=== PATIENT | female | born 1960 | race Caucasian/White ===

== ENCOUNTER 2022-10-15 09:38 | Outpatient (CLI) | payer MEDICAID, SELFPAY | END 2022-10-15 09:39 | disposition home or self-care (01) | PROVIDERS: PCP Family Medicine; Visit Provider Family Medicine | DX: R53.83 Other fatigue (principal); E55.9 Vitamin D deficiency, unspecified; R07.9 Chest pain, unspecified; Z86.39 Personal history of other endocrine, nutritional and metabolic disease | CPT/HCPCS: 80048; 80061; 82306; 84443; 85025 ==

== ENCOUNTER 2024-01-19 10:00 | Outpatient (CLI) | payer OTHER, SELFPAY ==
--- NOTE | 2024-01-19 11:02 | W.ANESCHARGE ---
Anesthesia Charges Start Date/Time Anesthesia Start Date: 01/19/24 Anesthesia Start Time: 10:44 Stop Date/Time Anesthesia Stop Date: 01/19/24 Anesthesia Stop Time: 11:00
--- NOTE | 2024-01-19 11:03 | W.ANESCHARGE ---
Anesthesia Charges Start Date/Time Anesthesia Start Date: 01/19/24 Anesthesia Start Time: 10:44 Stop Date/Time Anesthesia Stop Date: 01/19/24 Anesthesia Stop Time: 11:00
== END 2024-01-19 10:01 | disposition home or self-care (01) ==
LOC: OP CLINIC 10:03
PROVIDERS: PCP Family Medicine; Visit Provider Surgery
DX: R19.8 Other specified symptoms and signs involving the digestive system and abdomen; K44.9 Diaphragmatic hernia without obstruction or gangrene
CPT/HCPCS: 00731; 43239; 88305; J2704

== ENCOUNTER 2024-07-02 12:43 | Inpatient (IN) | payer MEDICAID, SELFPAY ==
[2024-07-02] VITALS (36 sets, daily range): BP systolic 109–149; BP diastolic 83–111; PULSE 80–111; RESP 16–24; TEMP 36–36.6; O2SAT 92–96; BMI 30.8; BMI 31.3
--- OUTSIDE RECORDS SUMMARY | 2024-07-02 12:45 | XMS_ITS | Clinical Summary ---
Author Organization [facility] Address [place], [place] [address] Care Team Providers Care Education Professional Name Role Phone Srinivasan Kern MD Primary Care Provider + Allergies Active Allergy Reactions Criticality Noted Date Comments Venlafaxine Analogues Other - Describe In Comment Field 02/15/2011 Vision disturbances Gabapentin 04/03/2010 memory Fluoxetine Mental Status Change Medium 02/15/2011 Tricyclic Antidepressants And Tricyclic Compounds 04/03/2010 Per patient: memory loss Medications albuterol HFA 90 mcg/actuation inhalerIndicati ons:Wheezing Inhale 1-2 Puffs by mouth every 4 hours if needed. 1 Inhaler 1 03/27/2018 Active nicotine 7 mg/24 hr (NICODERM; HABITROL) 7 mg/24 hr patchIndication s:Tobacco abuse Apply 1 Patch on dry, clean, hairless skin once daily. 30 Patch 2 03/27/2018 Active traMADol (ULTRAM) 50 mg tabletIndicatio ns:Acute bilateral low back pain without sciatica Take 1 tablet by mouth every 6 hours if needed. 60 tablet 2 05/12/2018 Active clonazePAM (KLONOPIN) 1 mg tabletIndicatio ns:Anxiety Take 1 tablet by mouth 2 times daily. 60 tablet 2 05/12/2018 Active cyclobenzaprine (FLEXERIL) 10 mg tabletIndicatio ns:Acute bilateral low back pain without sciatica Take 1 tablet by mouth 3 times daily if needed for Muscle Spasm. 90 tablet 5 05/12/2018 Active nicotine (NICORETTE) 2 mg lozengeIndicati ons:Tobacco abuse Place 1 Lozenge in mouth, between cheek & gum every hour while awake as needed for Nicotine Craving. 40 Lozenge 2 05/28/2018 Active DICLOFENAC SODIUM ORAL Take by mouth 2 times daily. Active BUPROPION HCL ORAL Take by mouth once daily. Active sertraline HCl (ZOLOFT ORAL) Take by mouth once daily. Active Active Problems Problem Noted Date Diagnosed Date Tobacco abuse 03/27/2018 Moderate episode of recurrent major depressive d isorder 03/20/2017 Lumbago 11/28/2007 Hypopyon 07/31/2003 Overview (10/10/2006): sergio/Dr. Chiang Migraine, unspecified, witho ut mention of intractable migraine without mention of status migrainosus Alcohol abuse, unspecified Overview (10/10/2006): sober since Allergic rhinitis, cause unspecified Resolved Problems Problem Noted Date Diagnosed Date Resolved Date Bronchitis, not specified as acute or chronic 11/28/19 08 01/26/2015 Obesity, unspecified 11/28/2007 015 Depressive disorder, not elsewhere classified 03/11/2017 Myalgia and myositis, unspecified 03/11/2017 Unspecified asthma(493.90) 0 01/26/2015 Immunizations Name Administration Dates Next Due Hepatitis B (Peds) 06/12/1992,12/14/1991, 992 Influenza, IIV4 03/27/2018,03/07/2017,03/15/2016 MMR 01/11/1992 Td (Age >=7 Years) 04/23/2002 Tdap 01/19/2021,12/21/2013 Family History Medical History Relation Name Comments Allergies Father Arthritis Father Asthma Father Stroke Father Alcohol/Drug Maternal Grandfather Heart Disease Maternal Grandfather Cancer Maternal Grandmother lung Hyperlipidemia Mother Hypertension Mother Other Mother suicide/depress ion/grave's disease Diabetes Paternal Grandfather Cancer-breast Paternal Grandmother Relation Name Status Comments Father Maternal Grandfather Maternal Grandmother Mother Paternal Grandfather Paternal Grandmother Social History Tobacco Use Types Packs/Day Years Used Date Smoking Tobacco: Former Cigarettes Smokeless Tobacco: Never Tobacco Cessation:Ready to Q uit: No; Counseling Given: Yes Comments:fall Alcohol Use Standard Drinks/Week Comments No 0 (1 standard drink = 0.6 oz pur e alcohol) last use Nov 20 2007 PHQ-2 Answer Date Recorded PHQ-2 Score 1 08/29/2018 Social Connections Answer Date Recorded Frequency of Communication with Friends and Fami ly Not on file 06/30/2021 Financial Resource Strain Answer Date R ecorded Difficulty of Paying Living Expenses Not on file 06/30/2021 Difficulty of Paying Living Expenses Not on file 06/30/2021 Comments No Sex and Gender Information Value Date Recorded Sex Assigned at Not on file Legal Sex Female 5:25 AM [employer]HANG[employer] P[employer] Gender Identity Not on file Sexual Orientation Not on file Obstetrics History Last Filed Vital Signs Vital Sign Reading Time Taken Comments Blood Pressure 125/87 01/19/2021 7:29 AM CDT Pulse 75 01/19/2021 7:29 AM CDT Temperature 36.8 C (98.2 F) 01/19/2021 7:29 AM CDT Respiratory Rate 16 01/19/2021 7:29 AM CDT Oxygen Saturation 98% 01/19/2021 7:29 AM CDT Inhaled Oxygen Concentration - - Weight 83.5 kg (184 lb) 01/19/2021 7:29 AM CDT Height 165.1 cm (5' 5) 01/19/2021 7:29 AM CDT Body Mass Index 30.62 01/19/2021 7:29 AM CDT Plan of Treatment Health Maintenance Due Date Last Done Comments HIV for age 15-65 1977 Colonoscopy through age 75 2007 Zoster (shingles) series for age 50+ (1 of 2) 2012 Mammogram for age 45-75 02/02/2016 02/01/2015, 04/03 BMI (ht and wt on same day) for age 18+ 05/12/2019 05/12/2018, 03/11/2017, 05/31/2016 Depression screening for age 12+ 05/12/2019 05/12/2018, 05/31/2016 Pap test for age 21-65 03/12/2020 7, 01/26/2015, 04/03/2010, Additional history exists Lipids for age 45-75 05/12/2023 05/12/2018, 03/07/2017, 01/26/2015, Additional history exists COVID-19 vaccine series (2023- season) 2024 Influenza for age 50-64 02/29/2024 03/27/20 18, 03/07/2017, 03/15/2016 Tetanus booster 01/19/2031 01/19/2021, 11/29, 04/23/2002 RSV vaccine for adults or (1 - 1-dose 75+ series) 2037 Hepatitis C screening for age 18-79 Completed 01/26/2015 Tdap Completed 01/19/2021, 12/21/2013 Pneumococcal series for age 6-49 Aged Out No longer eligible based on patient's age to complete this topic Procedures Procedure Name Priority Date/Time Associated Diagnosis Comments LIPID PANEL W REFLEX MEASURED LDL Routine 05/12/2018 9:18 AM PAPERHANGER PIPE Routine general medical examination at a health care facility [employer] THIN PREP PAP SCREEN IMAGED Routine 03/12/2017 10:33 AM CDT Screening for malignant neoplasm of cervix XR MAMMO BILAT SCREEN FFDM (IA) Routine 02/01/2015 9:37 AM CDT Other screening mammogram ANTI HCV Routine 01/26/2015 8:38 AM CDT Need for hepatitis C screening test from Last 3 Months or Most Recently Relevant to Health Maintenance Results * (ABNORMAL) LIPID PANEL W REFLEX MEASURED LDL (05/12/2018 9:18 AM PAPERHANGER PIPE) CHOLESTEROL,TOTAL 213(H) 100 - 199 mg/dL 05/12/2018 9:55 AM PAPERHANGER PIPE [facility] TRIGLYCERIDES 106 <150 mg/dL 05/12/2018 9:55 AM PAPERHANGER PIPE [facility] HDL CHOLESTEROL 64 >40 mg/dL 8 9:55 AM PAPERHANGER PIPE [facility] NON-HDL CHOLESTEROL 149(H) <145 mg/dl 05/12/2018 9:55 AM PAPERHANGER PIPE [facility] CHOL/HDL RATIO 3.33 <4.50 05/12/2018 9:55 AM PAP[employer]HANGER PIPE [facility] LDL CHOLESTEROL 128 <=130 mg/dL 05/12/2018 9:55 AM PAPERHANGER PIPE [facility] PROVIDER ORDERED STATUS RANDOM 05/12/2018 9:55 AM PAPERHANGER PIPE [facility] Blood BLOOD SPECIMEN / Unknown Venipuncture / Unknown 05/12/2018 9:18 AM PAPERHANGER PIPE 05/12/2018 9:18 AM PAPERHANGER PIPE us Srinivasan Kern MD CHEMISTRY Final Re sult [facility] [address] [place] [address] * [employer] THIN PREP PAP SCREEN IMAGED (03/12/2017 10:33 AM CDT) Case Report Gynecologic Cytology Report Case: [id number] Authorizing Provider: Srinivasan Kern MD Collected: 03/12/2017 1033 Ordering Location: [facility] Received: 03/12/2017 1034 Clinic First Screen: Marcie Tan Specimen: [employer] ThinPrep Vial Screening, Cervical 03/18/2017 12:06 PM CDT [facility] INTERPRETATION/ RESULT NEGATIVE FOR INTRAEPITHELIAL LESION OR MALIGNANCY (NIL) (none) 03/18/2017 12:06 PM CDT [email or web address] IMEN ADEQUACY Satisfactory for evaluation Endocervical component present 03/18/2017 12:06 PM CDT [facility] HPV REQUEST HPV if ASCUS 03/18/2017 12:06 PM CDT [facility] Date of LMP Postmenopausal 7 12:06 PM CDT [facility] Last Pap Date 01/26/15 03/18/2017 12:06 PM CDT [facility] Last Pap Result NIL 7 12:06 PM CDT [facility] Abnormal Pap or [place] Bx in last 5 years No 03/18/2017 12:06 PM CDT [facility] Menstrual Status Postmenopausal 03/18/2017 12:06 PM CDT [facility] [place] Bx Done Today No 03/18/2017 12:06 PM CDT [facility] Additional Information None given 03/18/2017 12:06 PM CDT [facility] Automated Review Successful 03/18/2017 12:06 PM CDT [facility] Comment:Specimen processed s uccessfully by automated slip cover operator device, QR [employer] Imaging System, [employer] Note The pap test is a screening technique, not a diagnostic procedure. It is used primarily to screen for squamous cancers and precursor lesions. Published studies have shown that it is subject to both false negative and false positive results. The pap test should not be used as the sole means to diagnose or exclude pre-malignant and malignant lesions. Interpreted at [facility] ([facility], [facility], [facility], [facility], [facility], [facility], [facility]) 03/18/2017 12:06 PM CDT [facility] Other (Cervical) 03/12/2017 10:33 AM CDT 03/12/2017 10:34 AM CDT us Srinivasan Kern MD PATHOLOGY/CYTOLOGY Final Result [facility] [address] [place] [address], [place] * XR MAMMO BILAT SCREEN FFDM (02/01/2015 9:37 AM CDT) Anatomical Region Laterality Modality BREASTS, Breast Left, Breast Right Bilateral Mammography Impressions 02/01/2015 9:55 AM CDT There is no radiographic evidence for malignancy. Recommend annual mammograms. A lay language report of this examination will be provided to the patient. MAMMOGRAM ASSESSMENT: ACR 2 Benign Narrative 02/01/2015 9:55 AM CDT XR MAMMO BILAT SCREEN FFDM [G0202.0] CLINICAL HISTORY: This is an asymptomatic 54 y.o. patient. INDICATION FOR EXAM: Mammogram Screening. TECHNIQUE: CC & MLO views were obtained. This digital study was evaluated with the assistance of Computer-Aided Detection. COMPARISON FILMS: Yes 04/03/10 [facility] DIAGNOSTIC IMAGING FINDINGS: Mammographically, the breast tissue has scattered fibroglandular densities. No suspicious masses or microcalcifications. Benign appearing calcifications within both breasts. Srinivasan Kern MD MAMMO Final Re sult * ANTI HCV [[id number]] (01/26/2015 8:38 AM CDT) HEPATITIS C ANTIBODY Non-Reacti ve Non-Reacti ve 01/26/2015 4:42 PM CDT [facility] Blood specimen (specimen) BLOOD SPECIMEN / Unknown Non-Blood / Unknown 01/26/2015 8:38 AM CDT 01/26/2015 9:46 AM CDT Narrative [facility] - 01/26/2015 4:42 PM CDT Antibodies to HCV not detected; does not exclude the possibility of exposure to HCV. Srinivasan Kern MD SEND OUTS Final Re sult [facility] [address] [place] [address], [place] from Last 3 Months or Most Recently Relevant to Health Maintenance Insurance [employer] * Guarantor: [employer] Account Type Relation to Patient Date of Phone Billing Address Occ Health/Charm[employer] Employer [phone] (Work) ATTN [employer] [address] [address] [place] [employer] [phone] [facility] [place] [id number] Advance Directives * Full Code (Latest Code Status on File) Date Activated Date Inactivated Comments 11/28/2007 3:02 AM 11/29/2007 5:28 PM Care Teams Education Professional Relationship Specialty Start Date End Date Srinivasan Kern MD [address] [place] [address] PCP - General Family Practice 01/15/19
--- NOTE | 2024-07-02 13:01 | ED.SOB ---
HPI - SOB/Dyspnea General Time Seen by Provider: 13:01 Date Seen: 07/02/24 Chief Complaint: Shortness of Breath/Dyspnea Stated Complaint: Short of breath Time Seen by Provider: 07/02/24 13:01 Source: patient and RN notes reviewed Mode of arrival: ambulatory Limitations: no limitations History of Present Illness HPI Narrative: Christel is a very pleasant 63-year-old female with a history of tobacco use, COPD, GERD and hiatal hernia who comes to the emergency room with complaints of shortness of breath worsening. Patient notes the onset of shortness of breath approximately 3 weeks ago and has had worsening symptoms. She describes being barely able to walk 10 ft without significant shortness of breath where as she usually walks to work. She states a week ago she could walk about 100 yd. She does get discomfort in the right upper chest when this occurs. She has not had a fever unusual cough or lower extremity edema. She does note that this past fall she was dealing with some significant GERD from her hiatal hernia that felt like chest pain. She was put on pantoprazole and has been somewhat improved since that time but notes that on May 16 she was sitting on the edge of her bed had the onset of chest pain associated with diaphoresis shortness of breath and shaking and is fairly certain that it was likely a heart attack because things have never been the same since that time. Patient is been caring for her . She reports no fever or other respiratory symptoms. She has greatly decreased tobacco use and only had a few puffs a cigarette today. Related Data Home Medications ?Medication ?Instructions ?Recorded ?Confirmed fluticasone 250 mcg-salmeterol 50 1 inh inhalation BID 06/07/24 07/02/24 mcg/dose blistr powdr for inhalation (Advair Diskus) citalopram 40 mg tablet 40 mg PO DAILY 07/02/24 07/02/24 diphenhydramine HCl 25 mg capsule 25 - 50 mg PO BID 07/02/24 07/02/24 (Allergy Relief (diphenhydramine)) pantoprazole 40 mg tablet,delayed 40 mg PO DAILY 07/02/24 07/02/24 release (Protonix) Previous Rx's ?Medication ?Instructions ?Recorded cholecalciferol (vitamin D3) 1,250 1,250 mcg PO QWEEK #12 caps 02/03/24 mcg (50,000 unit) capsule hydroxyzine HCl 25 mg tablet 25 - 50 mg (1 - 2 x 25 mg) PO TID 03/03/24 PRN anxiety #60 tabs buspirone 30 mg tablet 30 mg PO BID PRN anxiety #60 tabs 03/29/24 tramadol 50 mg tablet 50 mg PO Q6H PRN pain #90 tabs 04/11/24 albuterol sulfate 90 mcg/actuation 2 puff inhalation Q4-6H PRN 06/07/24 aerosol inhaler shortness of breath or wheezing #8.5 grams Allergies Allergy/AdvReac Type Severity Reaction Status Date / Time fluoxetine Allergy Severe altered Verified 07/02/24 14:28 mental status gabapentin Allergy Severe Hallucinati Verified 07/02/24 14:28 ng Tricyclic Antidepressants Allergy Severe memory loss Verified 07/02/24 14:28 and Tricy Venlafaxine Analogues Allergy Intermediate Unknown Verified 07/02/24 14:28 Pollen Allergy Mild Congested Uncoded 07/02/24 14:28 Review of Systems Status of ROS: Reports: 10 or more systems reviewed and unremarkable except as noted in History and below [facility] Medical History Generalized anxiety disorder ?F41.1 - Generalized anxiety disorder (ICD-10) COPD (chronic obstructive pulmonary disease) ?J44.9 - Chronic obstructive pulmonary disease, unspecified (ICD-10) Vitamin D deficiency ?E55.9 - Vitamin D deficiency, unspecified (ICD-10) GERD (gastroesophageal reflux disease) ?K21.9 - Gastro-esophageal reflux disease without esophagitis (ICD-10) Tobacco abuse (03/27/18) ?Z72.0 - Tobacco use (ICD-10) Moderate episode of recurrent major depressive disorder (03/20/17) ?F33.1 - Major depressive disorder, recurrent, moderate (ICD-10) Hypopyon of right eye ?H20.051 - Hypopyon, right eye (ICD-10) History of migraine ?Z86.69 - Personal history of other diseases of the nervous system and sense organs (ICD-10) History of alcohol abuse ?F10.11 - Alcohol abuse, in remission (ICD-10) Chronic low back pain ?M54.50 - Low back pain, unspecified (ICD-10) ?G89.29 - Other chronic pain (ICD-10) Allergic rhinitis ?J30.9 - Allergic rhinitis, unspecified (ICD-10) Surgical History History of removal of cyst ?Z98.890 - Other specified postprocedural states (ICD-10) History of arthroscopy of right knee (~1997) ?Z98.890 - Other specified postprocedural states (ICD-10) 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) ?Z96.651 - Presence of right artificial knee joint (ICD-10) History of tubal ligation (08/29/95) ?Z98.51 - Tubal ligation status (ICD-10) History of third molar tooth extraction ?K08.409 - Partial loss of teeth, unspecified cause, unspecified class (ICD-10) History of lumbar laminectomy (10/28/04) ?Z98.890 - Other specified postprocedural states (ICD-10) Family History Paternal Grandmother Breast cancer Mother Depression Heart disease CHF (congestive heart failure) COPD (chronic obstructive pulmonary disease) Father Heart disease High blood pressure Brother Prostate cancer Social History Narrative: -[place], 3 kids, [place], smoker, no EtOH Smoking Status: Current every day smoker What tobacco products do you use: cigarettes Do you use any of these nicotine containing products: None Second hand tobacco smoke exposure: No Exam Narrative: Exam Narrative: Alert and oriented. Mildly breathless when talking. O2 sats 92-95%. External ears eyes nose clear. We will GCS of 15 with normal mentation. Neck is supple. Heart with a tachycardic rate with normal rhythm. Lungs show decreased breath sounds bilaterally. Abdomen soft would rather a diffuse discomfort. Lower extremities with no evidence of edema. Calves are without any discomfort and Homans sign is negative. Const: Vital Signs, click to edit/add: Vital Signs - 24 hr 07/02/24 12:54 07/02/24 13:04 07/02/24 13:05 Temperature 96.8 F L Pulse Rate 97 96 Pulse Rate [Right Pulse Oximeter] 110 H Respiratory Rate 24 Blood Pressure 134/97 H Blood Pressure [Ri ght Upper Arm] 149/91 H Pulse Oximetry 95 92 94 Oxygen Delivery Me thod Room Air 07/02/24 13:15 07/02/24 13:33 07/02/24 13:34 Temperature Pulse Rate 94 107 H 103 H Pulse Rate [Right Pulse Oximeter] Respiratory Rate Blood Pressure 132/89 Blood Pressure [Ri ght Upper Arm] Pulse Oximetry 93 94 95 Oxygen Delivery Me thod 07/02/24 13:45 07/02/24 14:00 07/02/24 14:01 Temperature Pulse Rate 100 91 101 H Pulse Rate [Right Pulse Oximeter] Respiratory Rate Blood Pressure 124/83 Blood Pressure [Ri ght Upper Arm] Pulse Oximetry 94 93 92 Oxygen Delivery Me thod 07/02/24 14:15 07/02/24 14:34 07/02/24 14:35 Temperature Pulse Rate 100 106 H 102 H Pulse Rate [Right Pulse Oximeter] Respiratory Rate 16 Blood Pressure Blood Pressure [Ri ght Upper Arm] Pulse Oximetry 93 95 93 Oxygen Delivery Me thod 07/02/24 14:45 07/02/24 15:01 07/02/24 15:02 Temperature Pulse Rate 97 100 Pulse Rate [Right Pulse Oximeter] Respiratory Rate Blood Pressure 128/95 H Blood Pressure [Ri ght Upper Arm] Pulse Oximetry 94 94 Oxygen Delivery Me thod 07/02/24 15:15 07/02/24 15:30 07/02/24 15:31 Temperature Pulse Rate 105 H 96 98 Pulse Rate [Right Pulse Oximeter] Respiratory Rate Blood Pressure 138/95 H Blood Pressure [Ri ght Upper Arm] Pulse Oximetry 93 94 94 Oxygen Delivery Me thod 07/02/24 15:32 07/02/24 15:45 07/02/24 16:00 Temperature Pulse Rate 96 100 98 Pulse Rate [Right Pulse Oximeter] Respiratory Rate Blood Pressure Blood Pressure [Ri ght Upper Arm] Pulse Oximetry 94 96 96 Oxygen Delivery Me thod 07/02/24 16:01 07/02/24 16:15 07/02/24 16:30 Temperature Pulse Rate 98 100 107 H Pulse Rate [Right Pulse Oximeter] Respiratory Rate Blood Pressure 126/101 H Blood Pressure [Ri ght Upper Arm] Pulse Oximetry 96 93 96 Oxygen Delivery Me thod 07/02/24 16:31 07/02/24 16:32 07/02/24 16:45 Temperature Pulse Rate 100 102 H 94 Pulse Rate [Right Pulse Oximeter] Respiratory Rate Blood Pressure 131/91 H Blood Pressure [Ri ght Upper Arm] Pulse Oximetry 94 96 95 Oxygen Delivery Me thod 07/02/24 17:01 07/02/24 17:20 07/02/24 17:30 Temperature Pulse Rate 101 H 95 Pulse Rate [Right Pulse Oximeter] Respiratory Rate Blood Pressure 122/104 H Blood Pressure [Ri ght Upper Arm] Pulse Oximetry 96 94 Oxygen Delivery Me thod 07/02/24 17:31 Temperature Pulse Rate 92 Pulse Rate [Right Pulse Oximeter] Respiratory Rate Blood Pressure 132/84 Blood Pressure [Ri ght Upper Arm] Pulse Oximetry 95 Oxygen Delivery Me thod Documenting provider has reviewed patient's vital signs: yes Course Course ED Course: Differential diagnosis at this time is broad and includes COPD exacerbation, COVID, influenza, RSV, W[place], congestive heart failure, pneumonia. Will place IV and draw labs to include CBC, comprehensive panel, troponin, D-dimer, proBNP. Will also get chest x-ray EKG and place patient on cinnamon grinder. Reevaluation(s) Reevaluation #1: The patient noted to have elevated D-dimer and thus will order CT chest PE rule out. Reevaluation #2: CT does show bilateral pleural effusion, dilated left ventricle and concerns for pulmonary edema. I did talk to patient about her need for hospitalization and that we do not have Cardiology here. I do talk about [facility] as a possibility but she states that she really wants to stay in [place] as she is helping to care for family members. I will speak to hospitalist here at [place]. Vital Signs Vital signs: Initial Vital Signs Temperature 96.8 F L 07/02/24 12:54 Temperature Source Temporal Artery Scan 07/02/24 12:54 Pulse Rate 110 H 07/02/24 12:54 Pulse Rhythm Regular 07/02/24 12:54 Respiratory Rate 24 07/02/24 12:54 Blood Pressure 149/91 H 07/02/24 12:54 Blood Pressure Mean 110 H 07/02/24 12:54 Blood Pressure Position Sitting 07/02/24 12:54 Pulse Oximetry 95 07/02/24 12:54 Oxygen Delivery Method Room Air 07/02/24 12:54 Vital Signs Temperature 96.8 F L 07/02/24 12:54 Pulse Rate 110 H 07/02/24 12:54 Respiratory Rate 24 07/02/24 12:54 Blood Pressure 149/91 H 07/02/24 12:54 Pulse Oximetry 95 07/02/24 12:54 Oxygen Delivery Method Room Air 07/02/24 12:54 Temperature 96.8 F L 07/02/24 12:54 Pulse Rate 92 07/02/24 17:31 Respiratory Rate 16 07/02/24 14:35 Blood Pressure 132/84 07/02/24 17:31 Pulse Oximetry 95 07/02/24 17:31 Oxygen Delivery Method Room Air 07/02/24 12:54 Medications Administered Medications: Discontinued Medications Generic Name Dose Route Start Last Admin Trade Name Maliha PRN Reason Stop Dose Admin Aspirin 324 mg 07/02/24 14:37 07/02/24 14:52 Aspirin 81 Mg Tab.Chew PO 07/02/24 14:38 324 mg ONCE ONE Administration Furosemide 40 mg 07/02/24 16:46 07/02/24 17:41 Furosemide 10 Mg/Ml Inj IVP 07/02/24 16:47 40 mg ONCE ONE Administration MDM - SOB/Dyspnea MDM Narrative Medical decision making narrative: 1. New onset congestive heart failure-noted on CT is bilateral pleural effusion, proBNP elevated over 11,000, dilated left ventricle. Patient describes episode of intense chest pain with shortness of breath diaphoresis in mid April and notes that her breathing has gradually become more challenging since that time. Questionable WV at that time. Patient received 40 mg of IV Lasix in the ED. her troponin was in the indeterminate range at 0.05 with subsequent follow-up 0.07 which remains in the indeterminate range and likely stems from pulmonary edema. I spoke with our hospitalist who agrees to have this patient's stay here for diuresis, echocardiogram and continued observation. Patient will ultimately need to see Cardiology for likely further radiological studies such as a catheterization or MRI. At this time will continue to monitor troponin and hopefully she will have improvement of her symptoms after Lasix. Patient was also given aspirin 324 mg p.o. after initial troponin. 2. History of COPD-patient has not had significant coughing, fever, has tested negative for COVID influenza and RSV. 3. Disposition- admission to [facility] under the care of hospitalist Dr. Pete Cantu. Medical Records Attestation: I reviewed the patient's medical records. Lab Data Attestation: I reviewed the patient's lab results. Labs: Lab Results 07/02/24 07/02/24 07/02/24 Range/Units 12:10 13:12 13:20 WBC 7.20 (4.50-11.00) K/uL RBC 5.30 H (4.00-5.20) m/uL Hgb 14.3 (12.0-16.0) gm/dL Hct 45.1 (33.0-51.0) % MCV 85 (80-100) fL MCH 27 (26-34) pg MCHC 32 (32-36) gm/dL RDW Coeff of [place] 14.6 (11.5-15.5) % Plt Count 259 (140-440) K/uL Neut % (Auto) 69.6 (42.0-72.0) % Lymph % (Auto) 19.7 L (20-44) % [place] % (Auto) 7.8 (0.0-11.0) % Eos % (Auto) 2.1 (0.0-7.0) % Baso % (Auto) 0.7 (0.0-3.0) % Neut # (Auto) 5.01 (1.7-7.0) K/uL Lymph # (Auto) 1.40 (0.90-2.90) K/uL [place] # (Auto) 0.60 (0.00-0.90) K/UL Eos # (Auto) 0.15 (0.00-0.50) K/uL Baso # (Auto) 0.05 (0.00-0.30) K/uL Abs Immat Gran (auto) 0.01 (0.00-0.30) K/uL Imm/Tot Granulo (auto) 0.1 % D-Dimer Quant (PE/DVT) 1.85 H (0.00-0.50) ug/ml Sodium 140 (135-149) mmol/L Potassium 3.4 L (3.6-5.1) mmol/L Chloride 109 (96-114) mmol/L Carbon Dioxide 24 (20-32) mmol/L Anion Gap 7 (7-15) mEq/L BUN 15 (7-30) mg/dL Creatinine 0.8 (0.5-1.5) mg/dL Estimated Creat Clear 53.16 Estimated GFR 84 ml/min Glucose 99 (60-115) mg/dL Calcium 9.0 (8.4-10.6) mg/dL Total Bilirubin 0.9 (0.1-1.5) mg/dL AST 24 (12-35) U/L ALT 16 (4-35) U/L Alkaline Phosphatase 78 (40-150) U/L NT-Pro-B Natriuret Pep 82583 pg/mL Total Protein 6.2 (6.0-8.3) g/dL Albumin 3.9 (3.3-5.0) g/dL SARS-CoV-2 (PCR) Negative SARS-CoV-2 (Negative) Influenza Type A (PCR) Negative PCR FLU A (Negative) Influenza Type B (PCR) Negative PCR FLU B (Negative) RSV (PCR) Negative PCR RSV (Negative) POC Troponin I 0.05 H (0.01-0.04) ng/ml 07/02/24 Range/Units 16:37 WBC (4.50-11.00) K/uL RBC (4.00-5.20) m/uL Hgb (12.0-16.0) gm/dL Hct (33.0-51.0) % MCV (80-100) fL MCH (26-34) pg MCHC (32-36) gm/dL RDW Coeff of [place] (11.5-15.5) % Plt Count (140-440) K/uL Neut % (Auto) (42.0-72.0) % Lymph % (Auto) (20-44) % [place] % (Auto) (0.0-11.0) % Eos % (Auto) (0.0-7.0) % Baso % (Auto) (0.0-3.0) % Neut # (Auto) (1.7-7.0) K/uL Lymph # (Auto) (0.90-2.90) K/uL [place] # (Auto) (0.00-0.90) K/UL Eos # (Auto) (0.00-0.50) K/uL Baso # (Auto) (0.00-0.30) K/uL Abs Immat Gran (auto) (0.00-0.30) K/uL Imm/Tot Granulo (auto) % D-Dimer Quant (PE/DVT) (0.00-0.50) ug/ml Sodium (135-149) mmol/L Potassium (3.6-5.1) mmol/L Chloride (96-114) mmol/L Carbon Dioxide (20-32) mmol/L Anion Gap (7-15) mEq/L BUN (7-30) mg/dL Creatinine (0.5-1.5) mg/dL Estimated Creat Clear Estimated GFR ml/min Glucose (60-115) mg/dL Calcium (8.4-10.6) mg/dL Total Bilirubin (0.1-1.5) mg/dL AST (12-35) U/L ALT (4-35) U/L Alkaline Phosphatase (40-150) U/L NT-Pro-B Natriuret Pep pg/mL Total Protein (6.0-8.3) g/dL Albumin (3.3-5.0) g/dL SARS-CoV-2 (PCR) (Negative) Influenza Type A (PCR) (Negative) Influenza Type B (PCR) (Negative) RSV (PCR) (Negative) POC Troponin I 0.07 H (0.01-0.04) ng/ml Imaging Data Chest x-ray: Attestation: I have reviewed the pertinent imaging results. My impression: Pleural effusions Radiologist's impression: Cardiovasculature and mediastinum: The cardiomediastinal contours are partially obscured, limiting evaluation. Lungs and pleural spaces: Small to moderate bilateral pleural effusions with basilar atelectasis. There is also mild diffuse interstitial prominence. No pneumothorax. Bones and soft tissues: No significant findings. IMPRESSION: Small to moderate bilateral pleural effusions with basilar atelectasis and mild diffuse interstitial prominence. While nonspecific, this combination may reflect suggestive wwes-et-lzxpiszf pulmonary edema. CT scan - chest: Attestation: I have reviewed the pertinent imaging results. Radiologist's impression: Heart and vasculature: Contrast opacification of the pulmonary arterial tree is adequate. No sign of pulmonary embolism. Mild pulmonary artery enlargement. Left ventricular dilatation. Severe coronary atherosclerosis. Lungs and pleural: Dpjmp-wa-mteasobb right and small left pleural effusions. Bilateral interlobular septal thickening and mild geographic ground-glass opacities within both lungs, greater in the lung bases. Lymph nodes/mediastinum: Subcentimeter mediastinal lymph nodes. Chest wall: No masses. Upper abdomen: Gallbladder contracted. Bones: Unremarkable for age. IMPRESSION: 1. No evidence of pulmonary embolus. 2. Small to moderate right and small left pleural effusions. Bilateral interlobular septal thickening and geographic ground-glass opacities. Left ventricular dilatation. Appearance is consistent with left ventricular failure, pulmonary edema and subsequent bilateral pleural effusions. 3. Severe coronary atherosclerosis. ECG Data Attestation: I personally reviewed and interpreted this ECG as follows: ECG interpretation date: 07/02/24 Interpretation: By my read patient has sinus rhythm at a rate of 99. Occasional PVC. Nonspecific T-wave abnormality. Discharge Plan Discharge Clinical Impression: New onset of congestive heart failure Patient Disposition: Admitted As Observation Condition: Improved
--- NOTE | 2024-07-02 13:12 | CRLHL7_ITS ---
For Patients: As a result of the Century Cures Act, medical imaging exams and procedure reports are released immediately into your electronic medical record. You may view this report before your referring provider. If you have questions, please contact your health care provider. INDICATION: Shortness of breath. TECHNIQUE: Chest 1 views. COMPARISON: None. FINDINGS: Cardiovasculature and mediastinum: The cardiomediastinal contours are partially obscured, limiting evaluation. Lungs and pleural spaces: Small to moderate bilateral pleural effusions with basilar atelectasis. There is also mild diffuse interstitial prominence. No pneumothorax. Bones and soft tissues: No significant findings. IMPRESSION: Small to moderate bilateral pleural effusions with basilar atelectasis and mild diffuse interstitial prominence. While nonspecific, this combination may reflect suggestive mngh-zs-hjnruqmo pulmonary edema. Dictated by Tres Jarvis MD @ 07/02/2024 2:19:03 PM (Electronically Signed)
--- OUTSIDE RECORDS SUMMARY | 2024-07-02 13:23 | XMS_ITS | Clinical Summary ---
Author Organization [facility] Address [place], [place] [address] Care Team Providers Care Hoisting Pile Driving Engineer Name Role Phone Srinivasan Kern MD Primary [...] on file Legal Sex Female 5:25 AM RIFFLER TENDER Gender Identity Not on file Sexual Orientation [...] REFLEX MEASURED LDL Routine 05/12/2018 9:18 AM RIFFLER TENDER Routine general medical examination at a health care facility APPLICATION SERVICES MANAGER THIN PREP PAP SCREEN IMAGED Routine 03/12/2017 [...] W REFLEX MEASURED LDL (05/12/2018 9:18 AM RIFFLER TENDER) CHOLESTEROL,TOTAL 213(H) 100 - 199 mg/dL 05/12/2018 9:55 AM RIFFLER TENDER [facility] TRIGLYCERIDES 106 <150 mg/dL 05/12/2018 9:55 AM RIFFLER TENDER [facility] HDL CHOLESTEROL 64 >40 mg/dL 8 9:55 AM RIFFLER TENDER [facility] NON-HDL CHOLESTEROL 149(H) <145 mg/dl 05/12/2018 9:55 AM RIFFLER TENDER [facility] CHOL/HDL RATIO 3.33 <4.50 05/12/2018 9:55 AM RIFFLER TENDER [facility] LDL CHOLESTEROL 128 <=130 mg/dL 05/12/2018 9:55 AM RIFFLER TENDER [facility] PROVIDER ORDERED STATUS RANDOM 05/12/2018 9:55 AM RIFFLER TENDER [facility] Blood BLOOD SPECIMEN / Unknown Venipuncture / Unknown 05/12/2018 9:18 AM RIFFLER TENDER 05/12/2018 9:18 AM RIFFLER TENDER us Srinivasan Kern MD CHEMISTRY Final Re sult [facility] [address] [place] [address] * APPLICATION SERVICES MANAGER THIN PREP PAP SCREEN IMAGED (03/12/2017 10:33 AM CDT) Case Report Gynecologic Cytology Report Case: [id number] Authorizing Provider: Srinivasan Kern MD Collected: 03/12/2017 1033 Ordering Location: [facility] Received: 03/12/2017 1034 Clinic First Screen: Marcie Tan Specimen: APPLICATION SERVICES MANAGER [employer] Vial Screening, Cervical 03/18/2017 12:06 PM CDT [facility] INTERPRETATION/ RESULT NEGATIVE FOR INTRAEPITHELIAL LESION OR MALIGNANCY (NIL) (none) 03/18/2017 12:06 PM [facility] IMEN ADEQUACY Satisfactory for evaluation Endocervical component present 03/18/2017 12:06 PM CDT [facility] HPV REQUEST HPV if ASCUS 03/18/2017 12:06 PM CDT [facility] Date of LMP Postmenopausal 7 12:06 PM CDT [facility] Last Pap Date 01/26/15 03/18/2017 12:06 PM CDT [facility] Last Pap Result NIL 7 12:06 PM CDT [facility] Abnormal Pap or [place] Bx in last 5 years No 03/18/2017 12:06 PM CDT [facility] Menstrual Status Postmenopausal 03/18/2017 12:06 PM CDT [facility] [place] Bx Done Today No 03/18/2017 12:06 PM CDT [facility] Additional Information None given 03/18/2017 12:06 PM CDT [facility] Automated Review Successful 03/18/2017 12:06 PM CDT [facility] Comment:Specimen processed s uccessfully by automated sheet metal duct installer device, [employer] Imaging System, [employer] Note The pap test is a screening technique, not a diagnostic procedure. It is used primarily to screen for squamous cancers and precursor lesions. Published studies have shown that it is subject to both false negative and false positive results. The pap test should not be used as the sole means to diagnose or exclude pre-malignant and malignant lesions. Interpreted at [facility] ([facility], [facility], [facility], [facility], [facility], [facility], [facility]) 03/18/2017 12:06 PM CDT [facility] Other (Cervical) 03/12/2017 10:33 AM CDT 03/12/2017 10:34 AM CDT us Srinivasan Kern MD PATHOLOGY/CYTOLOGY Final Result [facility] [address] [place] [address], [place] * XR MAMMO BILAT SCREEN FFDM [...] of Computer-Aided Detection. COMPARISON FILMS: Yes 04/03/10 [facility] DIAGNOSTIC IMAGING FINDINGS: Mammographically, the breast tissue has scattered fibroglandular densities. No suspicious masses or microcalcifications. Benign appearing calcifications within both breasts. Srinivasan Kern MD MAMMO Final Re sult * ANTI HCV [[id number]] (01/26/2015 8:38 AM CDT) HEPATITIS C ANTIBODY Non-Reacti ve Non-Reacti ve 01/26/2015 4:42 PM CDT [facility] [employer] [facility] TR[facility] Blood specimen (specimen) BLOOD SPECIMEN / Unknown Non-Blood / Unknown 01/26/2015 8:38 AM CDT 01/26/2015 9:46 AM CDT Narrative [facility] - 01/26/2015 4:42 PM CDT Antibodies to HCV not detected; does not exclude the possibility of exposure to HCV. Srinivasan Kern MD SEND OUTS Final Re sult [facility] [address] [place] [address], [place] from Last 3 Months or Most Recently Relevant to Health Maintenance Insurance [facility] [employer] * Guarantor: [employer] Account Type Relation to Patient Date of Phone Billing Address Occ Health/Charmaine Employer [phone] (Work) ATTN [employer] [address] [address] [employer] [id number] [facility] [place] [place] [id number] Advance Directives * Full Code (Latest Code Status on File) Date Activated Date Inactivated Comments 11/28/2007 3:02 AM 11/29/2007 5:28 PM Care Teams Hoisting Pile Driving Engineer Relationship Specialty Start Date End Date Srinivasan Kern MD [address] [place] [address] PCP - General Family Practice 01/15/19
[2024-07-02 13:30] LABS: Basophils Absolute Auto 0.05 K/uL (0.00-0.30); Basophils Percent Auto 0.7 % (0.0-3.0); Eosinophils Absolute Auto 0.15 K/uL (0.00-0.50); Eosinophils Percent Auto 2.1 % (0.0-7.0); Hematocrit 45.1 % (33.0-51.0); Hemoglobin* 14.3 gm/dL (12.0-16.0); Immature Granulocytes Abs Auto 0.01 K/uL (0.00-0.30); Immature Granulocytes Pct Auto 0.1 %; Lymphocytes Percent Auto 19.7 % (20-44); Mean Corpuscular HGB Conc 32 gm/dL (32-36); Mean Corpuscular Hemoglobin 27 pg (26-34); Mean Corpuscular Volume 85 fL (80-100); Monocytes Percent Auto 7.8 % (0.0-11.0); Neutrophils Absolute Auto 5.01 K/uL (1.7-7.0); Neutrophils Percent Auto 69.6 % (42.0-72.0); Platelet Count* 259 K/uL (140-440); RDW Coefficient of Variation % 14.6 % (11.5-15.5)
[2024-07-02 13:35] LABS: Appearance Urine Clear (Clear); Bilirubin Urine 1+ (Negative); Blood Urine 2+ (Negative); Color Urine Yellow (Yellow); Glucose Urine Negative (Negative); Ketones Urine Trace (Negative); Leukocyte Esterase Urine Negative (Negative); Nitrite Urine Negative (Negative); Protein Urine 2+ (Negative); Specific Gravity Urine >= 1.030 (1.000-1.030)
[2024-07-02 13:36] LABS: Slide Review Reflex No
[2024-07-02 13:38] LABS: Troponin, Point-of-Care* 0.05 ng/ml (0.01-0.04)
[2024-07-02 13:44] LABS: Bacteria Urine Few; Squamous Epithelial Cell Urine Moderate (None-Few)
[2024-07-02 13:56] LABS: D Dimer Quantitative* 1.85 ug/ml (0.00-0.50)
[2024-07-02 13:57] LABS: Chloride* 109 mmol/L (96-114)
[2024-07-02 13:58] LABS: Albumin* 3.9 g/dL (3.3-5.0); Potassium* 3.4 mmol/L (3.6-5.1); Sodium* 140 mmol/L (135-149)
[2024-07-02 14:01] LABS: Alanine Aminotransferase* 16 U/L (4-35); Alkaline Phosphatase* 78 U/L (40-150); Anion Gap 7 mEq/L (7-15); Aspartate Amino Transferase* 24 U/L (12-35); Bilirubin Total* 0.9 mg/dL (0.1-1.5); Blood Urea Nitrogen* 15 mg/dL (7-30); Carbon Dioxide* 24 mmol/L (20-32); Creatinine* 0.8 mg/dL (0.5-1.5); Est. Creatinine Clearance* 53.16; Estimated Glomerular Filt Rate 84 ml/min; Glucose* 99 mg/dL (60-115); Total Protein* 6.2 g/dL (6.0-8.3)
[2024-07-02 14:10] LABS: PCR FLU A Negative PCR FLU A (Negative); PCR FLU B Negative PCR FLU B (Negative); PCR RSV Negative PCR RSV (Negative); SARS PCR* Negative SARS-CoV-2 (Negative)
[2024-07-02 14:16] LABS: NT Pro B Type NatriureticPept* 11300 pg/mL
--- NOTE | 2024-07-02 14:17 | CRLHL7_ITS ---
For Patients: As a result of the Century Cures Act, medical imaging exams and procedure reports are released immediately into your electronic medical record. You may view this report before your referring provider. If you have questions, please contact your health care provider. INDICATION: Shortness of breath and elevated D-dimer. TECHNIQUE: CT chest PE was acquired with 95 cc Isovue 370 intravenous contrast. COMPARISON: None. FINDINGS: Heart and vasculature: Contrast opacification of the pulmonary arterial tree is adequate. No sign of pulmonary embolism. Mild pulmonary artery enlargement. Left ventricular dilatation. Severe coronary atherosclerosis. Lungs and pleural: [id number] right and small left pleural effusions. Bilateral interlobular septal thickening and mild geographic ground-glass opacities within both lungs, greater in the lung bases. Lymph nodes/mediastinum: Subcentimeter mediastinal lymph nodes. Chest wall: No masses. Upper abdomen: Gallbladder contracted. Bones: Unremarkable for age. IMPRESSION: 1. No evidence of pulmonary embolus. 2. Small to moderate right and small left pleural effusions. Bilateral interlobular septal thickening and geographic ground-glass opacities. Left ventricular dilatation. Appearance is consistent with left ventricular failure, pulmonary edema and subsequent bilateral pleural effusions. 3. Severe coronary atherosclerosis. Please note that all CT scans at this facility use dose modulation, iterative reconstruction, and/or weight-based dosing when appropriate to reduce radiation dose to as low as reasonably achievable. Dictated by Dandre Lopez MD @ 07/02/2024 2:54:52 PM (Electronically Signed)
[2024-07-02] MEDS: ASPIRIN 81 MG TAB.CHEW 324 MG PO (14:52)
[2024-07-02 17:06] LABS: Troponin, Point-of-Care* 0.07 ng/ml (0.01-0.04)
[2024-07-02] MEDS: FUROSEMIDE 10 MG/ML inj 40 MG IVP (17:41)
[2024-07-02] MEDS: METOPROLOL SUCCINATE (XL) 25 MG TAB PO (18:36)
--- NOTE | 2024-07-02 18:45 | P.IMHP_ITS ---
Hospitalist- H&P: HPI History of Present Illness Date Seen: 07/02/24 Chief complaint: Short of breath Narrative: Christel Vila is a 63 year old female with COPD, GERD who presents with worsening dyspnea. Patient reports 1st having onset of symptoms of illness about May 16. At that time she had an episode of fairly severe chest pain which she thought was GERD. She also noted that she was starting to feel short of breath with activity. In the 7 weeks since that time she has noted worsening dyspnea. She is having orthopnea and nocturnal dyspnea. Previously she could walk 100 yd and now she reports that she has to stop after 10 ft of walking to catch her breath she occasionally has a bit of chest pain with ambulation but it is primarily limited by dyspnea. She has no history of heart disease, coronary disease, dysrhythmia, valvular heart disease. She does smoke. Quit smoking 2 weeks ago. Her mother had heart failure and father also had heart disease. She has dyslipidemia with total cholesterol of 216, LDL 138, HDL 55, triglycerides 115. No hypertension or diabetes. She does not have significant lower extremity edema. Review of Systems Narrative: She reports ongoing symptoms of gastroesophageal reflux disease, some of those symptoms overlap with heart disease. She does feel worse if she does not take her Protonix. [facility] Medical History (Updated 07/02/24 @ 19:14 by Chadwick Cantu MD) Coronary artery disease ?I25.10 - Atherosclerotic heart disease of [place] coronary artery without angina pectoris (ICD-10) Dyslipidemia ?E78.5 - Hyperlipidemia, unspecified (ICD-10) Generalized anxiety disorder ?F41.1 - Generalized anxiety disorder (ICD-10) COPD (chronic obstructive pulmonary disease) ?J44.9 - Chronic obstructive pulmonary disease, unspecified (ICD-10) Vitamin D deficiency ?E55.9 - Vitamin D deficiency, unspecified (ICD-10) GERD (gastroesophageal reflux disease) ?K21.9 - Gastro-esophageal reflux disease without esophagitis (ICD-10) Tobacco abuse (03/27/18) ?Z72.0 - Tobacco use (ICD-10) Moderate episode of recurrent major depressive disorder (03/20/17) ?F33.1 - Major depressive disorder, recurrent, moderate (ICD-10) Hypopyon of right eye ?H20.051 - Hypopyon, right eye (ICD-10) History of migraine ?Z86.69 - Personal history of other diseases of the nervous system and sense organs (ICD-10) History of alcohol abuse ?F10.11 - Alcohol abuse, in remission (ICD-10) Chronic low back pain ?M54.50 - Low back pain, unspecified (ICD-10) ?G89.29 - Other chronic pain (ICD-10) Allergic rhinitis ?J30.9 - Allergic rhinitis, unspecified (ICD-10) Surgical History History of removal of cyst ?Z98.890 - Other specified postprocedural states (ICD-10) History of arthroscopy of right knee (~1997) ?Z98.890 - Other specified postprocedural states (ICD-10) 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) ?Z96.651 - Presence of right artificial knee joint (ICD-10) History of tubal ligation (08/29/95) ?Z98.51 - Tubal ligation status (ICD-10) History of third molar tooth extraction ?K08.409 - Partial loss of teeth, unspecified cause, unspecified class (ICD- 10) History of lumbar laminectomy (10/28/04) ?Z98.890 - Other specified postprocedural states (ICD-10) Family History Paternal Grandmother Breast cancer Mother Depression Heart disease CHF (congestive heart failure) COPD (chronic obstructive pulmonary disease) Father Heart disease High blood pressure Brother Prostate cancer Social History (Updated 07/02/24 @ 18:57 by Chadwick Cantu MD) Narrative: -Kota, has stage IV lung cancer. She has become his primary caregiver. 3 kids, works part-time at a convenience store, quit smoking 2 weeks ago, no EtOH, no recreational drugs What is your current living situation?: I have a place to live at present, but am concerned about future Problems where you live: no known problems Problems where you live details: NA In the past 12 months, utilities in danger of being shut off: no In past 12 months, lack of transportation kept you from medical appts, meetings, work, or getting things needed for daily living: no In the past 12 mos, have been you worried that your food would run out before you had money to buy more?: never true In the past 12 mos, the food you bought just didn't last and you didn't have money to buy more?: never true Highest level of school completed/degree received: Associate degree: academic program Smoking Status: Current every day smoker What tobacco products do you use: cigarettes Do you use any of these nicotine containing products: None Nicotine containing products detail: Quit two weeks ago A puff here and there Second hand tobacco smoke exposure: No How often do you have a drink containing alcohol: never AUDIT-C Alcohol total score: 0 Non-prescribed substance use: denies use Caffeine: Yes How often does anyone, including family, friends and others, physically hurt you : never How often does anyone, including family, friends and others, insult or talk down to you: never How often does anyone, including family, friends and others, threaten you with harm: never How often does anyone, including family, friends and others, scream or curse at you: never service: No Health Related Social Needs: housing instability, housed, with risk of homelessness (Z59.811) Meds Home Medications and Allergies Home Medications ?Medication ?Instructions ?Recorded ?Confirmed ?Type fluticasone 250 mcg-salmeterol 50 1 inh inhalation BID 06/07/24 07/02/24 History mcg/dose blistr powdr for inhalation (Advair Diskus) citalopram 40 mg tablet 40 mg PO DAILY 07/02/24 07/02/24 History diphenhydramine HCl 25 mg capsule 25 - 50 mg PO BID 07/02/24 07/02/24 History (Allergy Relief (diphenhydramine)) pantoprazole 40 mg tablet,delayed 40 mg PO DAILY 07/02/24 07/02/24 History release (Protonix) Allergies Allergy/AdvReac Type Severity Reaction Status Date / Time fluoxetine Allergy Severe altered Verified 07/02/24 14:28 mental status gabapentin Allergy Severe Hallucinati Verified 07/02/24 14:28 ng Tricyclic Antidepressants Allergy Severe memory loss Verified 07/02/24 14:28 and Tricy Venlafaxine Analogues Allergy Intermediate Unknown Verified 07/02/24 14:28 Pollen Allergy Mild Congested Uncoded 07/02/24 14:28 Exam Narrative: Exam Narrative: She is alert and appears in no obvious distress. Mild increased rate of breathing. She gives her own history. Oropharynx normal. Neck is supple without adenopathy. No obvious jugular venous distension. Respirations with a few basilar crackles. Somewhat diminished breath sounds. No wheezing per Cardiovascular: S1, S2, regular rate and rhythm. Somewhat distant heart sounds. Abdomen: Bowel sounds active. Abdomen is soft without tenderness or mass. Extremities without edema. She has feet are warm to touch but with marked diminished pedal pulses. Const: Vital Signs, click to edit/add: Vital Signs - 24 hr 07/02/24 12:54 07/02/24 13:04 07/02/24 13:05 Temperature 96.8 F L Pulse Rate 97 96 Pulse Rate [Pulse Oximeter] Pulse Rate [Right Pulse Oximeter] 110 H Respiratory Rate 24 Blood Pressure 134/97 H Blood Pressure [Le ft Arm] Blood Pressure [Ri ght Upper Arm] 149/91 H Pulse Oximetry 95 92 94 [facility] 07/02/24 13:15 07/02/24 13:33 07/02/24 13:34 Temperature Pulse Rate 94 107 H 103 H Pulse Rate [Pulse Oximeter] Pulse Rate [Right Pulse Oximeter] Respiratory Rate Blood Pressure 132/89 Blood Pressure [Le ft Arm] Blood Pressure [Ri ght Upper Arm] Pulse Oximetry 93 94 95 [facility] 07/02/24 13:45 07/02/24 14:00 07/02/24 14:01 Temperature Pulse Rate 100 91 101 H Pulse Rate [Pulse Oximeter] Pulse Rate [Right Pulse Oximeter] Respiratory Rate Blood Pressure 124/83 Blood Pressure [Le ft Arm] Blood Pressure [Ri ght Upper Arm] Pulse Oximetry 94 93 92 Oxygen Delivery Dc thod 07/02/24 14:15 07/02/24 14:34 07/02/24 14:35 Temperature Pulse Rate 100 106 H 102 H Pulse Rate [Pulse Oximeter] Pulse Rate [Right Pulse Oximeter] Respiratory Rate 16 Blood Pressure Blood Pressure [Le ft Arm] Blood Pressure [Ri ght Upper Arm] Pulse Oximetry 93 95 93 Oxygen Delivery Dc thod 07/02/24 14:45 07/02/24 15:01 07/02/24 15:02 Temperature Pulse Rate 97 100 Pulse Rate [Pulse Oximeter] Pulse Rate [Right Pulse Oximeter] Respiratory Rate Blood Pressure 128/95 H Blood Pressure [Le ft Arm] Blood Pressure [Ri ght Upper Arm] Pulse Oximetry 94 94 Oxygen Delivery Dc thod 07/02/24 15:15 07/02/24 15:30 07/02/24 15:31 Temperature Pulse Rate 105 H 96 98 Pulse Rate [Pulse Oximeter] Pulse Rate [Right Pulse Oximeter] Respiratory Rate Blood Pressure 138/95 H Blood Pressure [Le ft Arm] Blood Pressure [Ri ght Upper Arm] Pulse Oximetry 93 94 94 [facility] 07/02/24 15:32 07/02/24 15:45 07/02/24 16:00 Temperature Pulse Rate 96 100 98 Pulse Rate [Pulse Oximeter] Pulse Rate [Right Pulse Oximeter] Respiratory Rate Blood Pressure Blood Pressure [Le ft Arm] Blood Pressure [Ri ght Upper Arm] Pulse Oximetry 94 96 96 [facility] 07/02/24 16:01 07/02/24 16:15 07/02/24 16:30 Temperature Pulse Rate 98 100 107 H Pulse Rate [Pulse Oximeter] Pulse Rate [Right Pulse Oximeter] Respiratory Rate Blood Pressure 126/101 H Blood Pressure [Le ft Arm] Blood Pressure [Ri ght Upper Arm] Pulse Oximetry 96 93 96 [facility] 07/02/24 16:31 07/02/24 16:32 07/02/24 16:45 Temperature Pulse Rate 100 102 H 94 Pulse Rate [Pulse Oximeter] Pulse Rate [Right Pulse Oximeter] Respiratory Rate Blood Pressure 131/91 H Blood Pressure [Le ft Arm] Blood Pressure [Ri ght Upper Arm] Pulse Oximetry 94 96 95 [facility] 07/02/24 17:01 07/02/24 17:20 07/02/24 17:30 Temperature Pulse Rate 101 H 95 Pulse Rate [Pulse Oximeter] Pulse Rate [Right Pulse Oximeter] Respiratory Rate Blood Pressure 122/104 H Blood Pressure [Le ft Arm] Blood Pressure [Ri ght Upper Arm] Pulse Oximetry 96 94 [facility] 07/02/24 17:31 07/02/24 18:40 Temperature 97.6 F Pulse Rate 92 Pulse Rate [Pulse Oximeter] 111 H Pulse Rate [Right Pulse Oximeter] Respiratory Rate 22 Blood Pressure 132/84 Blood Pressure [Le ft Arm] 131/111 H Blood Pressure [Ri ght Upper Arm] Pulse Oximetry 95 95 Oxygen Delivery Me thod Room Air Documenting provider has reviewed patient's vital signs: yes Hospitalist - H&P: Result Labs Labs: Short CBC 07/02/24 Range/Units 12:10 WBC 7.20 (4.50-11.00) K/uL Hgb 14.3 (12.0-16.0) gm/dL Hct 45.1 (33.0-51.0) % Plt Count 259 (140-440) K/uL BMP 07/02/24 12:10 Sodium 140 Potassium 3.4 L Chloride 109 Carbon Dioxide 24 BUN 15 Creatinine 0.8 Glucose 99 Calcium 9.0 Liver Function 07/02/24 Range/Units 12:10 Total Bilirubin 0.9 (0.1-1.5) mg/dL AST 24 (12-35) U/L ALT 16 (4-35) U/L Alkaline Phosphatase 78 (40-150) U/L Albumin 3.9 (3.3-5.0) g/dL Urine 07/02/24 Range/Units Unknown Urine Color Yellow (Yellow) Urine Appearance Clear (Clear) Urine pH 6.0 (5.0-8.5) Ur Specific [place] >= 1.030 (1.000-1.030) Urine Protein 2+ A (Negative) Urine Glucose (UA) Negative (Negative) ECG Attestation: I personally reviewed and interpreted this ECG as follows: (Sinus rhythm with a rate of 99. T-wave inversions and T-wave flattening across the precordium) ECG interpretation date: 07/02/[address] scan - chest: Radiologist's impression: INDICATION: Shortness of breath and elevated D-dimer. TECHNIQUE: CT chest PE was acquired with 95 cc Isovue 370 intravenous contrast. COMPARISON: None. FINDINGS: Heart and vasculature: Contrast opacification of the pulmonary arterial tree is adequate. No sign of pulmonary embolism. Mild pulmonary artery enlargement. Left ventricular dilatation. Severe coronary atherosclerosis. Lungs and pleural: [id number] right and small left pleural effusions. Bilateral interlobular septal thickening and mild geographic ground-glass opacities within both lungs, greater in the lung bases. Lymph nodes/mediastinum: Subcentimeter mediastinal lymph nodes. Chest wall: No masses. Upper abdomen: Gallbladder contracted. Bones: Unremarkable for age. IMPRESSION: 1. No evidence of pulmonary embolus. 2. Small to moderate right and small left pleural effusions. Bilateral interlobular septal thickening and geographic ground-glass opacities. Left ventricular dilatation. Appearance is consistent with left ventricular failure, pulmonary edema and subsequent bilateral pleural effusions. 3. Severe coronary atherosclerosis. Assessment and Plan Assessment and plan (1) New onset of congestive heart failure: Problem comment: Patient has new diagnosis of congestive heart failure. Appears to be primarily left-sided heart failure. Suspect coronary disease as the cause. Obtain echo. Initiate guideline directed therapy based on echo. Likely will need evaluation for coronary disease. Timing depends on clinical course Status: Acute (2) Coronary artery disease: Problem comment: Minimal troponin elevation. Severe coronary atherosclerosis on CT. Start aspirin and statin Status: Acute (3) COPD (chronic obstructive pulmonary disease): Problem comment: Not currently having an obvious exacerbation. Has stopped smoking. Status: Acute (4) Dyslipidemia: Problem comment: In light of coronary disease start statin Status: Acute Plan Patient has been the hospital for evaluation management of new onset of heart failure. Will obtain echo and initiate guideline directed medical therapy. Initiate evaluation for cause of heart failure as well. Anticipate minimum 2 days in the hospital to initiate therapy with close outpatient follow-up. Total Time Spent Total Time Spent: Total time spent today is 80 minutes in reviewing past medical history, coordination of care and discussing with patient and other staff ongoing evaluation management.
[2024-07-02] MEDS: ROSUVASTATIN CALCIUM 10 MG TABLET 20 MG PO (21:25)
[2024-07-02] MEDS: diphenhydrAMINE 25 MG CAPSULE PO (21:25)
[2024-07-02] MEDS: SODIUM CHLORIDE 0.9 % (FLUSH) 10 ML SYRINGE 5 ML IVF (21:25)
[2024-07-03] VITALS (9 sets, daily range): BP systolic 74–119; BP diastolic 54–85; PULSE 67–86; RESP 16–20; TEMP 35.9–36.9; O2SAT 91–96
--- NOTE | 2024-07-03 06:06 | PC.NURSE ---
Shift note: Patient has been doing well tonight, independent in room, alert and oriented. Frequency of urination due to the furosemide. No SOB recorded. She has been on room air throughout the shift with the O2>90. Patient was anxious at the beginning of the shift which appeared to be stabilized in the course of the shift. No pedal edema, nocturnal cough, or diarrhea recorded.
[2024-07-03] MEDS: FUROSEMIDE 10 MG/ML inj 40 MG IVP (06:28)
[2024-07-03] MEDS: SODIUM CHLORIDE 0.9 % (FLUSH) 10 ML SYRINGE 5 ML IVF ×2 (06:28→18:42)
[2024-07-03 07:20] LABS: Basophils Absolute Auto 0.07 K/uL (0.00-0.30); Basophils Percent Auto 1.1 % (0.0-3.0); Eosinophils Absolute Auto 0.26 K/uL (0.00-0.50); Eosinophils Percent Auto 3.9 % (0.0-7.0); Hematocrit 43.5 % (33.0-51.0); Hemoglobin* 13.9 gm/dL (12.0-16.0); Lymphocytes Percent Auto 25.6 % (20-44); Mean Corpuscular HGB Conc 32 gm/dL (32-36); Mean Corpuscular Hemoglobin 27 pg (26-34); Mean Corpuscular Volume 84 fL (80-100); Neutrophils Absolute Auto 4.01 K/uL (1.7-7.0); Neutrophils Percent Auto 60.4 % (42.0-72.0); Platelet Count* 250 K/uL (140-440); RDW Coefficient of Variation % 14.5 % (11.5-15.5); Red Blood Count 5.18 m/uL (4.00-5.20); White Blood Count* 6.64 K/uL (4.50-11.00)
[2024-07-03 07:30] LABS: Chloride* 105 mmol/L (96-114); Sodium* 138 mmol/L (135-149)
[2024-07-03 07:33] LABS: Anion Gap 9 mEq/L (7-15); Blood Urea Nitrogen* 14 mg/dL (7-30); Carbon Dioxide* 24 mmol/L (20-32); Creatinine* 0.7 mg/dL (0.5-1.5); Est. Creatinine Clearance* 53.16; Estimated Glomerular Filt Rate 98 ml/min; Glucose* 84 mg/dL (60-115)
[2024-07-03 07:34] LABS: Calcium* 8.4 mg/dL (8.4-10.6); Magnesium* 2.1 mg/dL (1.5-2.6)
[2024-07-03 07:36] LABS: Slide Review Reflex No
[2024-07-03 07:44] LABS: Troponin I* 0.05 ng/mL (0.01-0.04)
[2024-07-03 07:51] LABS: Potassium* 2.7 mmol/L (3.6-5.1)
[2024-07-03 08:23] LABS: Ferritin* 21.6 ng/mL (11.1-264.0)
[2024-07-03] MEDS: POTASSIUM BICARB 25 MEQ EFFERVESCENT TAB 50 MEQ PO ×2 (08:25→10:34)
[2024-07-03] MEDS: OMEPRAZOLE 20 MG CAPSULE DR 40 MG PO (08:26)
[2024-07-03] MEDS: METOPROLOL SUCCINATE (XL) 25 MG TAB PO (09:20)
[2024-07-03] MEDS: LOSARTAN POTASSIUM 50 MG TABLET PO (09:20)
[2024-07-03] MEDS: diphenhydrAMINE 25 MG CAPSULE PO ×2 (09:21→21:23)
[2024-07-03] MEDS: ASPIRIN 81 MG TABLET EC PO (09:21)
[2024-07-03] MEDS: CITALOPRAM HYDROBROMIDE 20 MG TABLET 40 MG PO (09:21)
[2024-07-03] MEDS: SPIRONOLACTONE 25 MG TABLET PO (09:21)
[2024-07-03] MEDS: ONDANSETRON 2 MG/ML inj 4 MG IVP ×2 (12:09→18:41)
--- NOTE | 2024-07-03 13:48 | P.IMPN_ITS ---
Progress Note: A&P Assessment and plan (1) New onset of congestive heart failure: Problem details: Patient has new diagnosis of congestive heart failure. Appears to be primarily left-sided heart failure. Suspect coronary disease as the cause. Obtain echo. Initiate guideline directed therapy based on echo. Likely will need evaluation for coronary disease. Timing depends on clinical course Status: Acute (2) Coronary artery disease: Problem details: Minimal troponin elevation. Severe coronary atherosclerosis on CT. Start aspirin and statin Status: Acute (3) Dyslipidemia: Problem details: In light of coronary disease start statin Status: Acute (4) COPD (chronic obstructive pulmonary disease): Problem details: Not currently having an obvious exacerbation. Has stopped smoking. Status: Acute (5) Hypotension: Problem details: Likely due to aggressive therapy for heart failure with diuretics, beta- blockers, ARB. Cut back on medication doses and continue to monitor Status: Acute Plan Continue in hospital for evaluation management of heart failure, guideline directed therapy based on echo. Monitor for complications of therapy including ongoing hypotension or fluid and electrolyte problems. Plan of cares cuss with patient other providers. Total time spent today is 35 minutes in this evaluation and management. Subjective Date Seen: 07/03/24 Interval history: Christel Vila is a 63 year old female with COPD, GERD who presents with worsening dyspnea. Patient reports 1st having onset of symptoms of illness about May 16. At that time she had an episode of fairly severe chest pain which she thought was GERD. She also noted that she was starting to feel short of breath with activity. In the 7 weeks since that time she has noted worsening dyspnea. She is having orthopnea and nocturnal dyspnea. Previously she could walk 100 yd and now she reports that she has to stop after 10 ft of walking to catch her breath she occasionally has a bit of chest pain with ambulation but it is primarily limited by dyspnea. She has no history of heart disease, coronary disease, dysrhythmia, valvular heart disease. She does smoke. Quit smoking 2 weeks ago. Her mother had heart failure and father also had heart disease. She has dyslipidemia with total cholesterol of 216, LDL 138, HDL 55, triglycerides 115. No hypertension or diabetes. She does not have significant lower extremity edema. 07/03/2024: Patient reports having some upset stomach this morning after breakfast. She has had some diarrhea which has been present for the last few days. She reports her breathing is better today she had vigorous diuresis last night. Around mid day today she did have an episode where she felt quite lig htheaded. Blood pressure was initially obtained sitting up at 74/54 and repeat supine was 89/66. She did not lose consciousness or have chest pain. She otherwise felt well Exam Narrative: Exam Narrative: She is alert appears in no distress. Respirations are clear to auscultation. Cardiovascular: S1, S2, regular rate and rhythm. Abdomen: Bowel sounds active. Abdomen is soft without tenderness or mass. Extremities with no edema. Const: Vital Signs, click to edit/add: Vital Signs - 24 hr 07/02/24 14:00 07/02/24 14:01 07/02/24 14:15 Temperature Pulse Rate 91 101 H 100 Pulse Rate [Pulse Oximeter] Respiratory Rate Blood Pressure 124/83 Blood Pressure [Le ft Arm] Pulse Oximetry 93 92 93 Oxygen Delivery Me thod 07/02/24 14:34 07/02/24 14:35 07/02/24 14:45 Temperature Pulse Rate 106 H 102 H 97 Pulse Rate [Pulse Oximeter] Respiratory Rate 16 Blood Pressure Blood Pressure [Le ft Arm] Pulse Oximetry 95 93 94 Oxygen Delivery Me thod 07/02/24 15:01 07/02/24 15:02 07/02/24 15:15 Temperature Pulse Rate 100 105 H Pulse Rate [Pulse Oximeter] Respiratory Rate Blood Pressure 128/95 H Blood Pressure [Le ft Arm] Pulse Oximetry 94 93 Oxygen Delivery Me thod 07/02/24 15:30 07/02/24 15:31 07/02/24 15:32 Temperature Pulse Rate 96 98 96 Pulse Rate [Pulse Oximeter] Respiratory Rate Blood Pressure 138/95 H Blood Pressure [Le ft Arm] Pulse Oximetry 94 94 94 Oxygen Delivery Me thod 07/02/24 15:45 07/02/24 16:00 07/02/24 16:01 Temperature Pulse Rate 100 98 98 Pulse Rate [Pulse Oximeter] Respiratory Rate Blood Pressure 126/101 H Blood Pressure [Le ft Arm] Pulse Oximetry 96 96 96 Oxygen Delivery Me thod 07/02/24 16:15 07/02/24 16:30 07/02/24 16:31 Temperature Pulse Rate 100 107 H 100 Pulse Rate [Pulse Oximeter] Respiratory Rate Blood Pressure 131/91 H Blood Pressure [Le ft Arm] Pulse Oximetry 93 96 94 Oxygen Delivery [place] thod 07/02/24 16:32 07/02/24 16:45 07/02/24 17:01 Temperature Pulse Rate 102 H 94 Pulse Rate [Pulse Oximeter] Respiratory Rate Blood Pressure 122/104 H Blood Pressure [Le ft Arm] Pulse Oximetry 96 [facility] 07[facility] 17:20 07/02/24 17:30 07/02/24 17:31 Temperature Pulse Rate 101 H 95 92 Pulse Rate [Pulse Oximeter] Respiratory Rate Blood Pressure 132/84 Blood Pressure [Le ft Arm] Pulse Oximetry 96 94 95 Oxygen Delivery Me od 07/02/24 18:40 07/02/24 19:00 07/02/24 19:51 Temperature 97.6 F 97.9 F Pulse Rate Pulse Rate [Pulse Oximeter] 111 H 80 Respiratory Rate 22 20 20 Blood Pressure Blood Pressure [Le ft Arm] 131/111 H 109/83 Pulse Oximetry 95 95 95 Oxygen Delivery [facility] Room Air Room Air Room Air 07/02/24 22:52 07/02/24 22:52 07/02/24 23:00 Temperature 97.9 F Pulse Rate 84 Pulse Rate [Pulse Oximeter] 96 Respiratory Rate 20 20 Blood Pressure Blood Pressure [Le ft Arm] 122/86 Pulse Oximetry 95 Oxygen Delivery [facility] Room Air 07/03/24 03:00 07/03/24 07:00 07/03/24 07:00 Temperature 97.9 F 97.7 F Pulse Rate Pulse Rate [Pulse Oximeter] 86 71 71 Respiratory Rate 20 20 20 Blood Pressure Blood Pressure [Le ft Arm] 119/85 110/73 Pulse Oximetry 91 94 Oxygen Delivery [facility] Room Air Room Air 07/03/24 12:00 07/03/24 12:05 07/03/24 12:40 Temperature 98 F Pulse Rate Pulse Rate [Pulse Oximeter] 76 75 67 Respiratory Rate 20 Blood Pressure Blood Pressure [Le ft Arm] 74/54 L 89/66 L 90/66 Pulse Oximetry 95 Oxygen Delivery [facility] Room Air Documenting provider has reviewed patient's vital signs: yes Labs Labs: Laboratory Results - last 24 hr 07/02/24 07/02/24 07/02/24 12:10 13:20 16:37 WBC RBC Hgb Hct MCV MCH MCHC RDW Coeff of [place] Plt Count Neut % (Auto) Lymph % (Auto) [place] % (Auto) Eos % (Auto) Baso % (Auto) Neut # (Auto) Lymph # (Auto) [place] # (Auto) Eos # (Auto) Baso # (Auto) Abs Immat Gran (auto) Imm/Tot Granulo (auto) D-Dimer Quant (PE/DVT) 1.85 H Sodium 140 Potassium 3.4 L Chloride 109 Carbon Dioxide 24 Anion Gap 7 BUN 15 Creatinine 0.8 Estimated Creat Clear 53.16 Estimated GFR 84 Glucose 99 Calcium 9.0 Magnesium Ferritin Total Bilirubin 0.9 AST 24 ALT 16 Alkaline Phosphatase 78 Troponin I NT-Pro-B Natriuret Pep 86193 Total Protein 6.2 Albumin 3.9 SARS-CoV-2 (PCR) Negative SARS-CoV-2 Influenza Type A (PCR) Negative PCR FLU A Influenza Type B (PCR) Negative PCR FLU B RSV (PCR) Negative PCR RSV POC Troponin I 0.07 H 07/03/24 06:08 WBC 6.64 RBC 5.18 Hgb 13.9 Hct 43.5 MCV 84 MCH 27 MCHC 32 RDW Coeff of [place] 14.5 Plt Count 250 Neut % (Auto) 60.4 Lymph % (Auto) 25.6 [place] % (Auto) 9.0 Eos % (Auto) 3.9 Baso % (Auto) 1.1 Neut # (Auto) 4.01 Lymph # (Auto) 1.70 [place] # (Auto) 0.60 Eos # (Auto) 0.26 Baso # (Auto) 0.07 Abs Immat Gran (auto) 0.00 Imm/Tot Granulo (auto) 0.0 D-Dimer Quant (PE/DVT) Sodium 138 Potassium 2.7 L* Chloride 105 Carbon Dioxide 24 Anion Gap 9 BUN 14 Creatinine 0.7 Estimated Creat Clear 53.16 Estimated GFR 98 Glucose 84 Calcium 8.4 Magnesium 2.1 Ferritin 21.6 Total Bilirubin AST ALT Alkaline Phosphatase Troponin I 0.05 H NT-Pro-B Natriuret Pep Total Protein Albumin SARS-CoV-2 (PCR) Influenza Type A (PCR) Influenza Type B (PCR) RSV (PCR) POC Troponin I
[2024-07-03 14:31] LABS: Chloride* 100 mmol/L (96-114); Potassium* 4.9 mmol/L (3.6-5.1); Sodium* 139 mmol/L (135-149)
[2024-07-03 14:33] LABS: Creatinine* 0.9 mg/dL (0.5-1.5); Est. Creatinine Clearance* 53.16; Estimated Glomerular Filt Rate 73 ml/min
[2024-07-03 14:34] LABS: Anion Gap 6 mEq/L (7-15); Blood Urea Nitrogen* 20 mg/dL (7-30); Calcium* 8.9 mg/dL (8.4-10.6); Carbon Dioxide* 33 mmol/L (20-32); Glucose* 103 mg/dL (60-115)
[2024-07-03] MEDS: ROSUVASTATIN CALCIUM 10 MG TABLET 20 MG PO (21:22)
[2024-07-03] MEDS: ALBUTEROL SULFATE 2.5 MG/3 ML VIAL.NEB NEB (21:24)
[2024-07-03] MEDS: BUDESONIDE 0.5 MG/2ML NEB NEB (21:26)
[2024-07-04] VITALS (10 sets, daily range): BP systolic 86–106; BP diastolic 63–87; PULSE 69–79; RESP 16–18; TEMP 36.3–36.6; O2SAT 90–96
[2024-07-04] MEDS: OMEPRAZOLE 20 MG CAPSULE DR 40 MG PO (06:01)
--- NOTE | 2024-07-04 06:25 | PC.NURSE ---
End of shift note [id number]: Pt alert & oriented x 4 and able to make needs known. She is independent with transferring and ambulation. Pt continent of bladder though difficult to document strict output as pt has been missing collection device in toilet at times when urinating. Pt has been afebrile and on RA throughout the shift. No c/o N/V or CP noted. Tele in place with NSR noted. Soft B/P noted at start of shift though pressures have since improved. Mild pain to R shoulder reported when asked this morning though pt declined PRN Tylenol when offered. Call light within reach. ?
[2024-07-04 06:53] LABS: Chloride* 102 mmol/L (96-114); Potassium* 3.9 mmol/L (3.6-5.1); Sodium* 135 mmol/L (135-149)
[2024-07-04 06:56] LABS: Anion Gap 4 mEq/L (7-15); Blood Urea Nitrogen* 24 mg/dL (7-30); Carbon Dioxide* 29 mmol/L (20-32); Creatinine* 0.9 mg/dL (0.5-1.5); Est. Creatinine Clearance* 53.16; Estimated Glomerular Filt Rate 73 ml/min
[2024-07-04 06:57] LABS: Calcium* 8.5 mg/dL (8.4-10.6); Glucose* 95 mg/dL (60-115)
[2024-07-04] MEDS: SACUBITRIL 24 mg/VALSARTAN 26 mg TABLET 1 TAB PO ×2 (08:33→21:28)
[2024-07-04] MEDS: CITALOPRAM HYDROBROMIDE 20 MG TABLET 40 MG PO (08:34)
[2024-07-04] MEDS: ALBUTEROL SULFATE 2.5 MG/3 ML VIAL.NEB NEB ×4 (08:34→21:29)
[2024-07-04] MEDS: SPIRONOLACTONE 25 MG TABLET PO (08:34)
[2024-07-04] MEDS: diphenhydrAMINE 25 MG CAPSULE PO ×2 (08:34→21:28)
[2024-07-04] MEDS: ASPIRIN 81 MG TABLET EC PO (08:34)
[2024-07-04] MEDS: SODIUM CHLORIDE 0.9 % (FLUSH) 10 ML SYRINGE 5 ML IVF ×2 (08:35→21:28)
[2024-07-04] MEDS: BUDESONIDE 0.5 MG/2ML NEB NEB ×2 (08:35→21:29)
[2024-07-04] MEDS: METOPROLOL SUCCINATE (XL) 25 MG TAB PO (09:09)
[2024-07-04] MEDS: TORSEMIDE 20 MG TABLET PO (11:45)
[2024-07-04] MEDS: ACETAMINOPHEN 325 MG TABLET 650 MG PO (12:03)
--- NOTE | 2024-07-04 14:56 | PC.NURSE ---
End of Shift: Patient pleasant and cooperative, A&O. VSS, afebrile. SpO2 maintained above 90% on RA. Patient reports arthritic pain this shift, managed with PRN medication, see MAR. Tolerating heart healthy diet. Independent in room. ?
--- NOTE | 2024-07-04 15:39 | PM.IMPN1 ---
Progress Note: A&P Assessment and plan (1) New onset of congestive heart failure: Problem details: Patient has new diagnosis of congestive heart failure. Appears to be primarily left-sided heart failure. Suspect coronary disease as the cause. Echocardiogram shows severely reduced ejection fraction, global hypokinesis, mitral regurgitation. Continue guideline directed therapy for half Fady. Cardiology recommends close outpatient follow-up and some form of testing for coronary disease will likely be obtained as well. Likely needs SGLT 2 inhibitor. May need to be started as an outpatient. Status: Acute (2) Coronary artery disease: Problem details: Minimal troponin elevation. Severe coronary atherosclerosis on CT. Start aspirin and statin Status: Acute (3) Dyslipidemia: Problem details: In light of coronary disease start statin Status: Acute (4) COPD (chronic obstructive pulmonary disease): Problem details: Not currently having an obvious exacerbation. Has stopped smoking. Status: Acute (5) Hypotension: Problem details: Likely due to aggressive therapy for heart failure with diuretics, beta-blockers, ARB. Cut back on medication doses and continue to monitor. Status: Acute Plan Continue in hospital for monitoring and management of heart failure and treatments. Make sure she can tolerate treatments without undue hypotension or fluid electrolyte problems. Close outpatient follow-up with Cardiology and ongoing outpatient adjustment of heart failure medicines to optimize. Total time spent today is 60 minutes, most that time spent discussing with Cardiology and patient ongoing management of heart failure with reduced ejection fraction and plan of care Subjective Date Seen: 07/04/24 Interval history: Christel Vila is a 63 year old female with COPD, GERD who presents with worsening dyspnea. Patient reports 1st having onset of symptoms of illness about May 16. At that time she had an episode of fairly severe chest pain which she thought was GERD. She also noted that she was starting to feel short of breath with activity. In the 7 weeks since that time she has noted worsening dyspnea. She is having orthopnea and nocturnal dyspnea. Previously she could walk 100 yd and now she reports that she has to stop after 10 ft of walking to catch her breath she occasionally has a bit of chest pain with ambulation but it is primarily limited by dyspnea. She has no history of heart disease, coronary disease, dysrhythmia, valvular heart disease. She does smoke. Quit smoking 2 weeks ago. Her mother had heart failure and father also had heart disease. She has dyslipidemia with total cholesterol of 216, LDL 138, HDL 55, triglycerides 115. No hypertension or diabetes. She does not have significant lower extremity edema. 07/03/2024: Patient reports having some upset stomach this morning after breakfast. She has had some diarrhea which has been present for the last few days. She reports her breathing is better today she had vigorous diuresis last night. Around mid day today she did have an episode where she felt quite lightheaded. Blood pressure was initially obtained sitting up at 74/54 and repeat supine was 89/66. She did not lose consciousness or have chest pain. She otherwise felt well 07/04/2024: Patient reports continued to feel better. Sleeping much better at night without significant dyspnea. No chest pain. No further episodes of lightheadedness or hypotension. I reviewed with Cardiology and the patient her current heart failure status with her echocardiogram showing severe LV dysfunction with reduced ejection fraction 22% and mitral regurgitation. Cardiology recommends close outpatient followup in optimizing guideline directed medical therapy. Exam Narrative: Exam Narrative: She is alert and appears in no distress. Breathing is unlabored. Respirations are clear to auscultation. Cardiovascular: S1, S2, 1/6 systolic murmur. No gallop or rub. Abdomen: Bowel sounds active. Abdomen is soft without tenderness or mass. Extremities with trace edema. Const: Vital Signs, click to edit/add: Vital Signs - 24 hr 07/03/24 19:47 07/03/24 23:00 07/03/24 23:00 Temperature 98.4 F 96.7 F L Pulse Rate Pulse Rate [Pulse Oximeter] 68 79 79 Respiratory Rate 18 16 16 Blood Pressure [Le ft Arm] Blood Pressure [Ri ght Arm] 87/66 L 97/77 Pulse Oximetry 94 [facility] Room Air 07/03/24 23:20 07/04/24 03:17 07/04/24 08:21 Temperature 97.3 F L 97.3 F L Pulse Rate 77 Pulse Rate [Pulse Oximeter] 72 79 Respiratory Rate 16 18 Blood Pressure [Le ft Arm] 103/78 Blood Pressure [Ri ght Arm] 106/87 Pulse Oximetry 92 [address] [facility] Room Air 07/04/24 09:19 07/04/24 09:23 07/04/24 11:50 Temperature 97.7 F Pulse Rate 72 Pulse Rate [Pulse Oximeter] 79 69 Respiratory Rate 18 18 Blood Pressure [Le ft Arm] Blood Pressure [Ri ght Arm] 92/68 Pulse Oximetry 93 Oxygen Delivery Me thod Room Air Documenting provider has reviewed patient's vital signs: yes Labs Labs: Laboratory Results - last 24 hr 07/04/24 06:02 Sodium 135 Potassium 3.9 Chloride 102 Carbon Dioxide 29 Anion Gap 4 L BUN 24 Creatinine 0.9 Estimated Creat Clear 53.16 Estimated GFR 73 Glucose 95 Calcium 8.5
--- NOTE | 2024-07-04 17:01 | W.PM.CROSSCO ---
Subjective Subjective Time Seen by Provider: 16:55 Date Seen: 07/04/24 Principal diagnosis: CP Interval history: Nurse notified me that patient endorsed CP and this had already resolved. Went to see the patient and Christel told me that she has been having on and off right-sided chest pain since admission. This mostly happens with activity such as getting up to the bathroom. Today she has been ambulating in the hallway and when she later got up to use the bathroom she had more intense right-sided chest pain that radiated up into her right neck. She denies diaphoresis with this, but did feel somewhat short of breath with it. It lasted about 20 minutes and then resolved. She told the nurse about it after it had resolved. She is completely pain-free right now and is feeling back to her usual self with no shortness of breath at rest while she is in the bed. Objective Objective Data Details: T 97.8 F, BP 86/66, HR 69, RR 16, O2sat 95% RA General: No acute distress. Awake, alert, oriented. No pallor. No diaphoresis. Oropharynx: Clear. Mucous membranes moist. Cardiovascular: Regular rate and rhythm. No murmurs, gallops, or rubs. Chest: Nontender to palpation. Respiratory: Clear to auscultation bilaterally. No wheezes or crackles. Abdomen: Bowel sounds present. Soft, nondistended, nontender. Assessment and Plan Assessment and plan (1) Chest pain: Problem comment: - In the setting of new onset CHF, this CP is concerning for angina or ACS. EKG and troponin are reassuring. I do not think she needs heparin or lovenox for ACS at this time. Recheck troponin at 1800 pending. May need to rediscuss with cardiology tomorrow since patient is now symptomatic. Status: Acute (2) Coronary artery disease: Problem comment: Minimal troponin elevation. Severe coronary atherosclerosis on CT. Start aspirin and statin Status: Acute (3) New onset of congestive heart failure: Problem comment: Patient has new diagnosis of congestive heart failure. Appears to be primarily left-sided heart failure. Suspect coronary disease as the cause. Echocardiogram shows severely reduced ejection fraction, global hypokinesis, mitral regurgitation. Continue guideline directed therapy for half Fady. Cardiology recommends close outpatient follow-up and some form of testing for coronary disease will likely be obtained as well. Likely needs SGLT 2 inhibitor. May need to be started as an outpatient. Status: Acute Total Time Spent Total Time Spent: Prolonged Physician Services I saw this patient for 20 minutes to discuss symptoms and recent history as well is examination and discussion of EKG, cardiac monitoring, and laboratory.
[2024-07-04 17:14] LABS: Troponin I* 0.04 ng/mL (0.01-0.04)
[2024-07-04 19:09] LABS: Troponin I* 0.04 ng/mL (0.01-0.04)
[2024-07-04] MEDS: ROSUVASTATIN CALCIUM 10 MG TABLET 20 MG PO (21:28)
--- NOTE | 2024-07-04 23:17 | PC.NURSE ---
End of shift: Pt AXOX4, pleasant, and cooperative. Pt is indep in room and walking the hallway. Pt reported R sided chest pain that radiated up to the esophagus. Toaster Element Repairer reported to MD - VS taken, EKG complete, Lab orders recieved. Continuing to monitor. TELE showed NSR. Pt declined interventions for pain due to it only lasting a few seconds. Pt reports SOB when walking long distances and heaviness to the BLE - conventional underwriter walked with Pt in the hallways, no safety concerns. Pt tolerating heart healthy diet and fluids well. SL. Continent of the bladder. Passing flatus. Family at bedside during shift. Pt appears resting watching television with call light in reach.
[2024-07-05] VITALS: BP 93/74; PULSE 78; RESP 18; TEMP 36.7; O2SAT 90
[2024-07-05 03:40] VITALS: BP 98/71; PULSE 76; RESP 18; TEMP 36.3; O2SAT 92
[2024-07-05 04:34] LABS: Chloride* 101 mmol/L (96-114); Potassium* 3.6 mmol/L (3.6-5.1); Sodium* 135 mmol/L (135-149)
[2024-07-05 04:37] LABS: Anion Gap 6 mEq/L (7-15); Blood Urea Nitrogen* 26 mg/dL (7-30); Calcium* 8.3 mg/dL (8.4-10.6); Carbon Dioxide* 28 mmol/L (20-32); Creatinine* 0.8 mg/dL (0.5-1.5); Est. Creatinine Clearance* 53.16; Estimated Glomerular Filt Rate 84 ml/min; Glucose* 109 mg/dL (60-115)
[2024-07-05 04:50] LABS: Troponin I* 0.04 ng/mL (0.01-0.04)
--- NOTE | 2024-07-05 05:19 | PC.NURSE ---
Pt reported feeling chest pressure when VS assessed at 0340. VS noted to be: B/P 98/71, P 76, R 18, T 97.4, O2 sat 92% on RA. EKG performed PSO with result: NSR, rightward axis, ST & T wave abnormality, consider inferior ischemia, abnormal ECG. Rocket Engine Tester updated Tj Meneses and obtained order to check Troponin. Troponin noted to be 0.04 which is unchanged from yesterday's value.
[2024-07-05] MEDS: OMEPRAZOLE 20 MG CAPSULE DR 40 MG PO (06:12)
--- NOTE | 2024-07-05 06:45 | PC.NURSE ---
End of shift note [id number]: Pt alert & oriented x 4 and able to make needs known. She has denied pain though reported ?chest pressure/discomfort? with 0300 VS. EKG performed with Tj BLANCO updated. Troponin remains unchanged from yesterday?s value. Pt independent with transferring and ambulation with staff encouraging ambulation. Blood pressures continue to trend soft. Pt continent of bladder. Pt afebrile and on RA throughout the shift. Call light within reach.
[2024-07-05 07:00] VITALS: BP 104/73; PULSE 78; PULSE 83; RESP 18; TEMP 36.6; O2SAT 94
[2024-07-05] MEDS: BUDESONIDE 0.5 MG/2ML NEB NEB (08:03)
[2024-07-05] MEDS: ALBUTEROL SULFATE 2.5 MG/3 ML VIAL.NEB NEB (08:04)
[2024-07-05] MEDS: TORSEMIDE 20 MG TABLET PO (08:04)
[2024-07-05] MEDS: ASPIRIN 81 MG TABLET EC PO (08:04)
[2024-07-05] MEDS: diphenhydrAMINE 25 MG CAPSULE PO (08:05)
[2024-07-05] MEDS: CITALOPRAM HYDROBROMIDE 20 MG TABLET 40 MG PO (08:05)
[2024-07-05] MEDS: METOPROLOL SUCCINATE (XL) 25 MG TAB PO (08:05)
[2024-07-05] MEDS: SACUBITRIL 24 mg/VALSARTAN 26 mg TABLET 1 TAB PO (08:06)
[2024-07-05] MEDS: SPIRONOLACTONE 25 MG TABLET PO (08:07)
[2024-07-05] MEDS: SODIUM CHLORIDE 0.9 % (FLUSH) 10 ML SYRINGE 5 ML IVF (08:07)
--- NOTE | 2024-07-05 11:56 | NUTR.NU ---
RDN with MD consult for diet education related to new diagnosis of congestive heart failure. RDN visited with patient whom agreed to receive diet education. She reports she does not follow a specific diet at home right now. 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 Heart healthy diet education provided. Discussed following a Mediterranean-style diet using the plate method that includes ? plate non-starchy vegetables and fruit, ? plate whole grains/starch, ? plate healthy protein (fish, poultry, legumes, nuts/seeds), and healthy fats. Discussed [place] [address] mg or less daily. Handouts provided to support discussion. RDN contact information provided and encouraged patient to call with questions. Plan is for patient to discharge home today.
--- NOTE | 2024-07-05 13:31 | P.DS_ITS ---
DS: Providers Provider Date Seen: 07/05/24 Date of admission: 07/02/24 18:14 Primary care physician: Srinivasan Kern MD Admitting Clinician: Chadwick Cnatu MD Attending Physician on discharge: Chadwick Cantu MD Date of Discharge: 07/05/24 DS: Diagnosis Discharge Diagnosis (1) New onset of congestive heart failure: Status: Acute Problem details: Patient has new diagnosis of congestive heart failure. Appears to be primarily left-sided heart failure. Suspect coronary disease as the cause. Echocardiogram shows severely reduced ejection fraction, global hypokinesis, mitral regurgitation. Continue guideline directed therapy for heart failure with reduced ejection fraction. Cardiology recommends close outpatient follow- up and some form of testing for coronary disease will likely be obtained as well. Likely needs SGLT 2 inhibitor. May need to be started as an outpatient if tolerating current medications. (2) Chest pain: Status: Acute Problem details: Patient had episodes of right chest pain last evening and overnight. Subsequent troponins have been normal/stable. Electrocardiograms have been unchanged. Pending outpatient cardiology evaluation which likely includes evaluation for ischemia (3) Coronary artery disease: Status: Acute Problem details: Minimal troponin elevation. Severe coronary atherosclerosis on CT. Start aspirin and statin. DS: Summary Hospital Course Hospital Course: Christel Vila is a 63 year old female with COPD, GERD who presents with worsening dyspnea. Patient reports 1st having onset of symptoms of illness about May 16. At that time she had an episode of fairly severe chest pain which she thought was GERD. She also noted that she was starting to feel short of breath with activity. In the 7 weeks since that time she has noted worsening dyspnea. She is having orthopnea and nocturnal dyspnea. Previously she could walk 100 yd and now she reports that she has to stop after 10 ft of walking to catch her breath she occasionally has a bit of chest pain with ambulation but it is primarily limited by dyspnea. She has no history of heart disease, coronary disease, dysrhythmia, valvular heart disease. She does smoke. Quit smoking 2 weeks ago. Her mother had heart failure and father also had heart disease. She has dyslipidemia with total cholesterol of 216, LDL 138, HDL 55, triglycerides 115. No hypertension or diabetes. She does not have significant lower extremity edema. Patient initially treated with diuresis with intravenous furosemide. She was then started on guideline directed therapy for heart failure with reduced ejection fraction based on echocardiogram showing a ejection fraction of 22%. She had couple of episodes of right-sided chest pain with electrocardiogram showing no acute changes and troponin stable at 0.04. She had relatively rapid improvement in her symptoms including resolution of PND and orthopnea and much better exercise tolerance walking the hallways in the hospital. She did have some borderline low blood pressures but tolerated this fairly well. Time Spent with Patient Time attestation: Total time spent providing and/or coordinating discharge services: 40 minutes Time spent: Greater than 30 minutes Exam Narrative: Exam Narrative: She is alert and appears in no distress. Respirations with a rare basilar crackle otherwise clear to auscultation. Cardiovascular: S1, S2, regular rate and rhythm. 1/6 systolic murmur. Abdomen is soft without tenderness. E xtremities with trace edema. Const: Vital Signs, click to edit/add: Vital Signs - 24 hr 07/04/24 15:00 07/04/24 15:00 07/04/24 19:00 Temperature 97.8 F 97.7 F Pulse Rate 69 Pulse Rate [Pulse Oximeter] 69 70 Respiratory Rate 16 16 Blood Pressure [Le ft Arm] Blood Pressure [Ri ght Arm] 86/66 L 100/77 Pulse Oximetry 95 96 Oxygen Delivery Me thod Room Air Room Air 07/04/24 22:00 07/04/24 23:00 07/04/24 23:01 Temperature Pulse Rate 78 Pulse Rate [Pulse Oximeter] 78 Respiratory Rate 18 Blood Pressure [Le ft Arm] 91/63 Blood Pressure [Ri ght Arm] 102/76 Pulse Oximetry Oxygen Delivery Me thod 07/05/24 00:00 07/05/24 03:40 07/05/24 07:00 Temperature 98.1 F 97.4 F L Pulse Rate 83 Pulse Rate [Pulse Oximeter] 78 76 Respiratory Rate 18 18 Blood Pressure [Le ft Arm] Blood Pressure [Ri ght Arm] 93/74 98/71 Pulse Oximetry 90 92 Oxygen Delivery Me thod Room Air Room Air 07/05/24 07:00 07/05/24 07:00 Temperature 97.9 F Pulse Rate Pulse Rate [Pulse Oximeter] 78 Respiratory Rate 18 18 Blood Pressure [Le ft Arm] Blood Pressure [Ri ght Arm] 104/73 Pulse Oximetry 94 Oxygen Delivery Me thod Room Air Documenting provider has reviewed patient's vital signs: yes DS: Data Data Completed and Pending Labs on day of discharge: Labs from last 24 hours 07/05/24 07/04/24 07/04/24 04:15 18:30 16:37 Sodium 135 Potassium 3.6 Chloride 101 Carbon Dioxide 28 Anion Gap 6 L BUN 26 Creatinine 0.8 Estimated Creat Clear 53.16 Estimated GFR 84 Glucose 109 Calcium 8.3 L Troponin I 0.[address] scan - chest: Radiologist's impression: INDICATION: Shortness of breath and elevated D-dimer. TECHNIQUE: CT chest PE was acquired with 95 cc Isovue 370 intravenous contrast. COMPARISON: None. FINDINGS: Heart and vasculature: Contrast opacification of the pulmonary arterial tree is adequate. No sign of pulmonary embolism. Mild pulmonary artery enlargement. Left ventricular dilatation. Severe coronary atherosclerosis. Lungs and pleural: [id number] right and small left pleural effusions. Bilateral interlobular septal thickening and mild geographic ground-glass opacities within both lungs, greater in the lung bases. Lymph nodes/mediastinum: Subcentimeter mediastinal lymph nodes. Chest wall: No masses. Upper abdomen: Gallbladder contracted. Bones: Unremarkable for age. IMPRESSION: 1. No evidence of pulmonary embolus. 2. Small to moderate right and small left pleural effusions. Bilateral interlobular septal thickening and geographic ground-glass opacities. Left ventricular dilatation. Appearance is consistent with left ventricular failure, pulmonary edema and subsequent bilateral pleural effusions. 3. Severe coronary atherosclerosis. Discharge Plan Discharge Disposition: Home, Self-Care Date of Admission: 07/02/24 18:14 Attending Provider on Discharge: Chadwick Cantu Primary Care Provider: Srinivasan Kern Condition: Improved Anticipated Discharge Date/Time: 07/05/24 10:08 Discharge Medications: New torsemide 20 mg Tablet 20 mg PO DAILY@0800 Qty: 30 0RF sennosides-docusate sodium [Stool Softener-Laxative] 8.6-50 mg Tablet 1 - 2 tab PO BID PRN (Reason: Constipation) Qty: 30 0RF aspirin 81 mg Tablet,Delayed Release (Dr/Ec) 81 mg PO DAILY Qty: 100 0RF spironolactone 25 mg Tablet 25 mg PO DAILY Qty: 30 0RF metoprolol succinate 25 mg Tablet Extended Release 24 Hr 25 mg PO DAILY Qty: 30 0RF rosuvastatin 10 mg Tablet 20 mg PO HS Qty: 30 0RF sacubitril-valsartan [Entresto] 24-26 mg Tablet 1 tab PO BID Qty: 60 0RF Continued diphenhydramine HCl [Allergy Relief(diphenhydramin)] 25 mg capsule 25 - 50 mg PO BID citalopram 40 mg tablet 40 mg PO DAILY pantoprazole [Protonix] 40 mg tablet,delayed release (DR/EC) 40 mg PO DAILY cholecalciferol (vitamin D3) 1,250 mcg (50,000 unit) capsule 1,250 mcg PO QWEEK Qty: 12 0RF hydroxyzine HCl 25 mg tablet 25 - 50 mg PO TID PRN (Reason: anxiety) Qty: 60 2RF buspirone 30 mg tablet 30 mg PO BID PRN (Reason: anxiety) Qty: 60 0RF tramadol 50 mg tablet 50 mg PO Q6H PRN (Reason: pain) Qty: 90 1RF Rx Instructions: Must last a month albuterol sulfate 90 mcg/actuation HFA aerosol inhaler 2 puff inhalation Q4-6H PRN (Reason: shortness of breath or wheezing) Qty: 8.5 0RF fluticasone propion-salmeterol [Advair Diskus] 250-50 mcg/dose blister with device 1 inh inhalation BID Discharge Orders: Discharge Order (Routine); Ordered 07/05/24 Ordered By: Chadwick Cantu Patient Education: Metoprolol (By mouth), Spironolactone (By mouth), Aspirin (By mouth), Torsemide (By mouth), Rosuvastatin (By mouth), Laxative, Stimulant Combination (By mouth), Sacubitril/Valsartan (By mouth), Heart Failure (DC) Additional Instructions: Check your weight every morning when you get up. Record your weight to keep track and to share with your doctor. If your weight is increasing you may need additional diuretic to get rid of water weight. If your breathing is getting worse is probably related to your heart failure. You should go to the emergency room for evaluation. Activity Level: Activity as Tolerated Discharge Diet: Heart Healthy (2 gm sodium, low fat) Follow Up Appointments: Srinivasan Kern MD [Primary Care Provider] - 07/13/24 12:45 pm ([facility] for follow-up, recheck of heart failure, labs including basic metabolic panel) Forms: [employer] Info Instructions
--- NOTE | 2024-07-05 14:34 | PC.NURSE ---
Shift note: patient alert and oriented, pleasant and cooperative, patient verbalized she has been focused on her husbands health compared to her own, request to speak to licensed social worker. Consult ordered. declining pain. expressing SOB with activity but only longer distances. sats >90 on RA, IV removed catheter intact. patient discharged to home with care of self. patient verbalized understanding of discharge instructions. focused on new medications. weighing self daily. heart healthy diet. symptoms to report. f/u appointment. patient left via wheelchair around 1300.
== END 2024-07-05 13:00 | disposition home or self-care (01) | DRG 292 ==
LOC: ED 17:03 → MEDSURG 17:37
PROVIDERS: Family Medicine; Internal Medicine; Admitting Provider Family Medicine; Emergency Provider Family Medicine; PCP Family Medicine; Visit Provider Family Medicine
DX: I50.21 Acute systolic (congestive) heart failure (principal); F33.1 Major depressive disorder, recurrent, moderate; I25.119 Atherosclerotic heart disease of native coronary artery with unspecified angina pectoris; Z72.0 Tobacco use; I95.89 Other hypotension; E78.5 Hyperlipidemia, unspecified; J44.9 Chronic obstructive pulmonary disease, unspecified; R19.7 Diarrhea, unspecified; E87.6 Hypokalemia; F41.1 Generalized anxiety disorder; K21.9 Gastro-esophageal reflux disease without esophagitis; F10.11 Alcohol abuse, in remission
CPT/HCPCS: 36415; 71045; 71275; 80048; 80053; 81001; 82728; 83735; 83880; 84484; 85025; 85379; 87086; 87631; 93005; 93306; 94640; 99284; 99285; A9270; J1940; J2405; J7626; Q9967

== ENCOUNTER 2024-07-13 14:31 | Outpatient (CLI) | payer MEDICAID, SELFPAY | END 2024-07-13 14:32 | disposition home or self-care (01) | PROVIDERS: PCP Family Medicine; Visit Provider Family Medicine | DX: I50.9 Heart failure, unspecified (principal); E78.5 Hyperlipidemia, unspecified | CPT/HCPCS: 80048; 80061; 83880 ==

== ENCOUNTER 2024-07-26 11:28 | Outpatient (CLI) | payer MEDICAID, SELFPAY | END 2024-07-26 11:29 | disposition home or self-care (01) | PROVIDERS: PCP Family Medicine; Visit Provider Family Medicine | DX: I25.10 Atherosclerotic heart disease of native coronary artery without angina pectoris (principal); I50.9 Heart failure, unspecified | CPT/HCPCS: 80048; 85018 ==

== ENCOUNTER 2024-08-10 15:45 | Outpatient (CLI) | payer MEDICAID, SELFPAY | END 2024-08-10 15:46 | disposition home or self-care (01) | LOC: NFLDREF 08-13 03:30 | PROVIDERS: PCP Family Medicine; Referring Provider Family Medicine; Visit Provider Family Medicine | DX: I50.21 Acute systolic (congestive) heart failure (principal) | CPT/HCPCS: 80048; 83880 ==

== ENCOUNTER 2024-11-12 11:21 | Outpatient (CLI) | payer MEDICAID, SELFPAY | END 2024-11-12 11:22 | disposition home or self-care (01) | PROVIDERS: PCP Family Medicine; Visit Provider Family Medicine | DX: I50.20 Unspecified systolic (congestive) heart failure (principal) | CPT/HCPCS: 80048; 83880 ==

== ENCOUNTER 2024-11-19 10:13 | Outpatient (CLI) | payer MEDICAID, SELFPAY ==
[2024-11-19 13:53] LABS: Chloride* 104 mmol/L (96-114); Potassium* 4.8 mmol/L (3.6-5.1); Sodium* 140 mmol/L (135-149)
[2024-11-19 13:56] LABS: Anion Gap 8 mEq/L (7-15); Blood Urea Nitrogen* 21 mg/dL (7-30); Carbon Dioxide* 28 mmol/L (20-32); Creatinine* 0.9 mg/dL (0.5-1.5); Estimated Glomerular Filt Rate 72 ml/min
[2024-11-19 13:57] LABS: Calcium* 9.9 mg/dL (8.4-10.6); Glucose* 81 mg/dL (60-115)
[2024-11-19 14:10] LABS: NT Pro B Type NatriureticPept* 604 pg/mL
== END 2024-11-19 10:14 | disposition home or self-care (01) ==
LOC: NPINS 10:14
PROVIDERS: PCP Family Medicine; Visit Provider Internal Medicine
DX: Z79.82 Long term (current) use of aspirin (principal); I25.10 Atherosclerotic heart disease of native coronary artery without angina pectoris; Z95.5 Presence of coronary angioplasty implant and graft
CPT/HCPCS: 80048; 83880